=== PATIENT | female | born 1950 | race American Indian/Alaskan Native ===

== ENCOUNTER 2016-12-27 06:51 | Day surgery (SDC) | payer MEDICARE, OTHER ==
[2016-12-27] MEDS ORDERED: Proparacaine 0.5% Ophth Soln 15 ML Bottle EYERT ONE (07:00)
[2016-12-27] MEDS ORDERED: Acetaminophen 325 MG Tab PO PRN (07:00)
[2016-12-27] MEDS ORDERED: Timolol Maleate 0.5% Ophth Soln 5 ML Bottle EYERT ONE (07:00)
[2016-12-27] MEDS ORDERED: Ondansetron 4 MG/2 ML SDV IVPUSH PRN (07:00)
[2016-12-27] MEDS ORDERED: Moxifloxacin 0.5% Ophth Soln 3 ML Bottle EYERT ONE (07:00)
[2016-12-27] MEDS ORDERED: Phenylephrine 10% Ophth Soln 5 ML Bot EYERT PRN (07:00)
[2016-12-27] MEDS ORDERED: Phenylephrine 10% Ophth Soln 5 ML Bot EYERT ONE (07:00)
[2016-12-27] MEDS ORDERED: Cataract Ophth Solution EYERT ONE (07:00)
[2016-12-27] MEDS ORDERED: Sodium Chloride 0.9% 10 ML Syringe FLUSH PRN (07:00)
[2016-12-27] MEDS ORDERED: Povidone-Iodine 5% Sterile Ophth Soln 30 ML Bottle EYERT ONE ×2 (07:00→08:28)
[2016-12-27] MEDS ORDERED: Midazolam 1 MG/ML 2 ML SDV ONE (07:45)
[2016-12-27] MEDS ORDERED: Ondansetron 4 MG/2 ML SDV ONE (07:45)
[2016-12-27] MEDS ORDERED: Dexamethasone 4 MG/ML SDV ONE (07:45)
[2016-12-27] MEDS ORDERED: Famotidine 20 MG/2 ML SDV ONE (07:46)
[2016-12-27] MEDS ORDERED: Lidocaine 1% 30 ML SDV ONE (08:28)
[2016-12-27] MEDS ORDERED: Diclofenac Sodium 0.1% Ophth Soln 5 ML Bottle EYERT ONE (08:29)
[2016-12-27] MEDS ORDERED: Apraclonidine 0.5% Ophth Soln 5 ML Bot EYERT ONE (08:30)
[2016-12-27] MEDS ORDERED: Dexamethasone/Neomycin/Polymyxin B Ophth Oint 3.5 GM Tube EYERT ONE (08:30)
[2016-12-27] MEDS ORDERED: Vancomycin 500 MG SDV EYERT ONE (08:31)
[2016-12-27] MEDS ORDERED: Balanced Salt Solution Ophth Irrig 500 ML Bottle IOCULAR ONE (08:31)
[2016-12-27] MEDS ORDERED: Chondroitin Sulfate/Hyaluronate Sodium Ophth Inj 0.75 ML Syringe EYERT ONE (08:32)
--- NOTE | 2016-12-27 11:12 | OR ---
DATE: 12/27/2016 PREOPERATIVE DIAGNOSIS: Cataract, right eye. POSTOPERATIVE DIAGNOSIS: Cataract, right eye. PROCEDURE: Extracapsular cataract extraction with intraocular lens implant, right eye. ANESTHESIA: Topical/local MAC. COMPLICATIONS: None. INDICATION: Ms. Canales was seen in the clinic. She has complained of difficulty reading, difficulty seeing road signs. Clinical examination reveals mixed cataract with best spectacle corrected vision of 2200. I explained options. I offered cataract surgery, and explained risks preoperatively including but not limited to, infection, retinal detachment, loss of vision, need for additional surgery, and risks associated with anesthesia. We discussed implant options. She requested a monofocal implant. She is comfortable wearing glasses following surgery if necessary. OPERATIVE DESCRIPTION: After informed consent was obtained and the risks, benefits, and alternatives were explained, the patient was brought to the operative suite and topical anesthesia was administered. The patient was then prepped and draped in the sterile fashion and attention was placed on the right eye. A sterile lid speculum was placed into the right eye to allow operative exposure. A full-thickness paracentesis was made in the temporal portion of the operative eye. Preservative-free lidocaine 0.1 mL was injected into the anterior chamber followed by viscoelastic. A full-thickness corneal incision was then made into the anterior chamber. A bent needle cystotome was used to create a small jaden in the anterior capsule. The capsulorrhexis forceps was then used to create a 360-degree curvilinear capsulorrhexis. The nucleus was then removed using a phacoemulsification handpiece and the remaining cortical material was then removed with irrigation and aspiration handpiece. Following removal of the cortical material, the capsular bag was then inspected and noted to be free of any holes or tears. Viscoelastic was then injected into the capsular bag and the intraocular lens was inserted into the capsular bag. No complications occurred. The viscoelastic material was then removed from both the anterior and posterior chambers and from behind the IOL. The lens and capsular bag were then reinspected. The IOL was well centered and the capsular bag intact. The wound and paracentesis sites were inspected and hydrated with balanced saline solution. Both were found to be self-sealing. The intraocular pressure was assessed digitally and found to be within normal range. A good red reflex was noted at the completion of the procedure. No complications occurred during the operation. At the completion of the procedure, Keely Encinas, and Iopidine drops were placed into the operative eye. A sterile eye shield was placed over the operative eye and the patient was transported to the postoperative recovery area having tolerated the procedure well. Postoperative instructions were given along with a postoperative appointment. The patient was advised to call with any questions or concerns. [facility] /[id number]
[2016-12-27 12:09] VITALS: BP 112/49
[2016-12-27] MEDS ORDERED: Ondansetron 4 MG/2 ML SDV IV ONE (16:33)
[2016-12-27] MEDS ORDERED: Famotidine 20 MG/2 ML SDV IV ONE (16:33)
[2016-12-27] MEDS ORDERED: Midazolam 1 MG/ML 2 ML SDV IV ONE (16:33)
--- NOTE | 2017-01-11 15:53 | EKG ---
12/27/2016 - EFRAIN BRITTON - TIME OF EK hours. EKG, per my reading, shows sinus rhythm at the rate of 46. [facility] /[id number]
== END 2016-12-27 09:37 | disposition home or self-care (01) ==
LOC: DL.SDS 06:51
PROVIDERS: ATTEND Ophthalmology
DX: H26.9 Unspecified cataract (principal); I10 Essential (primary) hypertension; E11.9 Type 2 diabetes mellitus without complications; E78.5 Hyperlipidemia, unspecified; I25.810 Atherosclerosis of coronary artery bypass graft(s) without angina pectoris; F32.9 Major depressive disorder, single episode, unspecified; E53.8 Deficiency of other specified B group vitamins; Z88.8 Allergy status to other drugs, medicaments and biological substances; Z90.710 Acquired absence of both cervix and uterus; Z98.890 Other specified postprocedural states; Z90.49 Acquired absence of other specified parts of digestive tract
CPT/HCPCS: 00142; 66984; 82962; 93005; 93010; A9270; C1780; J2250; J2405; J3370; J7050; S0028

== ENCOUNTER 2017-01-03 07:53 | Day surgery (SDC) | payer MEDICARE, OTHER ==
[~2017-01-03 07:53] MED LIST: Dexamethasone 4 MG/ML SDV ONE; Midazolam 1 MG/ML 2 ML SDV ONE
[2017-01-03] MEDS ORDERED: Phenylephrine 10% Ophth Soln 5 ML Bot EYELF PRN (08:00)
[2017-01-03] MEDS ORDERED: Ondansetron 4 MG/2 ML SDV IVPUSH PRN (08:00)
[2017-01-03] MEDS ORDERED: Moxifloxacin 0.5% Ophth Soln 3 ML Bottle EYELF ONE (08:00)
[2017-01-03] MEDS ORDERED: Acetaminophen 325 MG Tab PO PRN (08:00)
[2017-01-03] MEDS ORDERED: Povidone-Iodine 5% Sterile Ophth Soln 30 ML Bottle EYELF ONE ×2 (08:00→09:13)
[2017-01-03] MEDS ORDERED: Sodium Chloride 0.9% 10 ML Syringe FLUSH PRN (08:00)
[2017-01-03] MEDS ORDERED: Timolol Maleate 0.5% Ophth Soln 5 ML Bottle EYELF ONE (08:00)
[2017-01-03] MEDS ORDERED: Phenylephrine 10% Ophth Soln 5 ML Bot EYELF ONE (08:00)
[2017-01-03] MEDS ORDERED: Cataract Ophth Solution EYELF ONE (08:00)
[2017-01-03] MEDS ORDERED: Proparacaine 0.5% Ophth Soln 15 ML Bottle EYELF ONE (08:00)
[2017-01-03] MEDS ORDERED: Ondansetron 4 MG/2 ML SDV ONE (08:54)
[2017-01-03] MEDS ORDERED: Tetracaine HCl/PF 0.5% 4 ML Bottle EYELF ONE (09:13)
[2017-01-03] MEDS ORDERED: Dexamethasone/Neomycin/Polymyxin B Ophth Oint 3.5 GM Tube EYELF ONE (09:13)
[2017-01-03] MEDS ORDERED: Balanced Salt Solution Ophth Irrig 500 ML Bottle IOCULAR ONE (09:13)
[2017-01-03] MEDS ORDERED: Apraclonidine 0.5% Ophth Soln 5 ML Bot EYELF ONE (09:13)
[2017-01-03] MEDS ORDERED: Lidocaine 1% 30 ML SDV ONE (09:14)
[2017-01-03] MEDS ORDERED: Vancomycin 500 MG SDV EYELF ONE (09:14)
[2017-01-03] MEDS ORDERED: Chondroitin Sulfate/Hyaluronate Sodium Ophth Inj 0.75 ML Syringe EYELF ONE (09:14)
--- NOTE | 2017-01-03 10:40 | OR ---
DATE: 01/03/2017 PREOPERATIVE DIAGNOSIS: Cataract, left eye. POSTOPERATIVE DIAGNOSIS: Cataract, left eye. PROCEDURE: Extracapsular cataract extraction with intraocular lens implant, left eye. ANESTHESIA: Topical/local MAC. COMPLICATIONS: None. INDICATION: Ms. Canales was seen in the clinic with complaints of blurred vision. Clinical examination revealed visually significant cataract. I explained options. I offered cataract surgery, and explained risks, including, but not limited to, infection, retinal detachment, loss of vision, need for additional surgery, and risks associated with anesthesia. We discussed implant options. She has requested cataract surgery with a monofocal implant. She is comfortable wearing glasses following surgery if necessary. She voiced an understanding with respect to risks and limitations and wished to proceed. OPERATIVE DESCRIPTION: After informed consent was obtained and the risks, benefits, and alternatives were explained, the patient was brought to the operative suite and topical anesthesia was administered. The patient was then prepped and draped in the sterile fashion and attention was placed on the left eye. A sterile lid speculum was placed into the left eye to allow operative exposure. A full-thickness paracentesis was made in the temporal portion of the operative eye. Preservative-free lidocaine 0.1 mL was injected into the anterior chamber followed by viscoelastic. A full-thickness corneal incision was then made into the anterior chamber. A bent needle cystotome was used to create a small jaden in the anterior capsule. The capsulorrhexis forceps was then used to create a 360-degree curvilinear capsulorrhexis. The nucleus was then removed using a phacoemulsification handpiece and the remaining cortical material was then removed with irrigation and aspiration handpiece. Following removal of the cortical material, the capsular bag was then inspected and noted to be free of any holes or tears. Viscoelastic was then injected into the capsular bag and the intraocular lens was inserted into the capsular bag. No complications occurred. The viscoelastic material was then removed from both the anterior and posterior chambers and from behind the IOL. The lens and capsular bag were then reinspected. The IOL was well centered and the capsular bag intact. The wound and paracentesis sites were inspected and hydrated with balanced saline solution. Both were found to be self-sealing. The intraocular pressure was assessed digitally and found to be within normal range. A good red reflex was noted at the completion of the procedure. No complications occurred during the operation. At the completion of the procedure, Pinkdingol, Voltaren, and Iopidine drops were placed into the operative eye. A sterile eye shield was placed over the operative eye and the patient was transported to the postoperative recovery area having tolerated the procedure well. Postoperative instructions were given along with a postoperative appointment. The patient was advised to call with any questions or concerns. [facility] /[id number]
[2017-01-03 11:39] VITALS: BP 119/67
[2017-01-03] MEDS ORDERED: Midazolam 1 MG/ML 2 ML SDV IV ONE (16:41)
[2017-01-03] MEDS ORDERED: Dexamethasone 4 MG/ML SDV IV ONE (16:41)
[2017-01-03] MEDS ORDERED: Ondansetron 4 MG/2 ML SDV IV ONE (16:41)
== END 2017-01-03 10:21 | disposition home or self-care (01) ==
LOC: DL.SDS 07:53
PROVIDERS: ATTEND Ophthalmology
DX: H26.9 Unspecified cataract (principal); I25.810 Atherosclerosis of coronary artery bypass graft(s) without angina pectoris; I10 Essential (primary) hypertension; E78.5 Hyperlipidemia, unspecified; Z88.8 Allergy status to other drugs, medicaments and biological substances; E11.9 Type 2 diabetes mellitus without complications; F32.9 Major depressive disorder, single episode, unspecified; E53.8 Deficiency of other specified B group vitamins; Z90.49 Acquired absence of other specified parts of digestive tract; Z90.710 Acquired absence of both cervix and uterus; Z98.890 Other specified postprocedural states; Z98.84 Bariatric surgery status
CPT/HCPCS: 66984; A9270; C1780; J1100; J2250; J2405; J3370; J7050; 00142

== ENCOUNTER 2017-07-11 06:50 | Day surgery (SDC) | payer MEDICARE, OTHER ==
[~2017-07-11 06:50] MED LIST changes: -Dexamethasone 4 MG/ML SDV ONE; +Dextrose 5%-0.45% NaCl 1,000 ML IV SCH; +Sodium Chloride 0.9% 10 ML Syringe FLUSH PRN; +fentaNYL 100 MCG/2 ML SDV ONE
[2017-07-11] MEDS ORDERED: fentaNYL 100 MCG/2 ML SDV IV ONE ×3 (06:51→07:56)
[2017-07-11] MEDS ORDERED: Midazolam 1 MG/ML 2 ML SDV IV ONE ×3 (06:51→07:57)
--- NOTE | 2017-07-11 09:07 | OR ---
DATE: 07/11/2017 PROCEDURE: Esophagogastroduodenoscopy, narrow-band imaging, and multiple pinch biopsies. INSTRUMENT USED: GIF-H180 Olympus video panendoscope. PREMEDICATIONS: No oral topical anesthesia used. Fentanyl 100 mcg intravenous, Versed 2 mg intravenous. Nasal O2 cannula. The procedure was done under pulse oximetry, BP recording, and monitor and storage bin tender. INDICATION: The patient with intermittent constipation, diarrhea, and abdominal pain unexplained, and not responsive to medical measures. Status post gastric bypass surgery. Recent CT enterography suggestive of prominent duodenal fold, malignancy under consideration. DESCRIPTION OF PROCEDURE: Esophagogastroduodenoscopy is performed for detection of any active erosive lesions, duodenal malignancy also under consideration, biopsies to be obtained for celiac disease if indicated, endoscopic hemostasis therapy if needed. The colonoscope was passed with ease. Adequate visualization of the esophagus was made from proximal to distal areas. No upper esophageal lesions identified. No distal esophageal stricture. No uphill or downhill esophageal varices. No Dolores-Vega tear. No evidence of erosive esophagitis by Claiborne criteria. No esophageal polyp or tumor mass identified. Z-line was seen at around 40 cm distal to the oral verge, configuration consistent with Grade 1 by Zapp classification. No proximal gastric varices noted. Gastric fundus examination by retroflexion showed no polypoid lesions. Visualized mucosa of the gastric antrum, body, and duodenum showed no lesions. Efferent loop of the duodenum visualized, showed a couple of areas with prominent folds. NBI views were obtained, multiple pinch biopsies were obtained and sent for histopathology. Multiple pinch biopsies, four in number, were also taken from the normal- appearing duodenal mucosa and sent for any histopathologic evidence of celiac disease. No bleeding was noted from any of the visualized areas at the completion of examination. Photographs were taken of the prominent duodenal folds, surgical site, gastric fundus, as well as distal esophagus. IMPRESSION: Status post gastric bypass surgery. The patient tolerated the procedure well. [facility] /[id number]
--- NOTE | 2017-07-11 09:20 | LETTER ---
07/11/2017 Nicolle Rodriguez MD [facility] [address] [place] [address] RE: AMANDA BRITTON : [address] Rodriguez: Ms. Amanda Gentile Parker had esophagogastroduodenoscopy done this morning and she tolerated the procedure well. I herewith send a copy of the endoscopy note and photographs for your review. Thank you. Sincerely, [facility] /[id number]
[2017-07-11 11:01] VITALS: BP 122/68
== END 2017-07-11 10:22 | disposition home or self-care (01) ==
LOC: DL.ENDO 06:50
PROVIDERS: ATTEND Internal Medicine Gastroenterology
DX: K59.00 Constipation, unspecified (principal); R10.9 Unspecified abdominal pain; R19.7 Diarrhea, unspecified; E66.9 Obesity, unspecified; I25.10 Atherosclerotic heart disease of native coronary artery without angina pectoris; I10 Essential (primary) hypertension; E11.9 Type 2 diabetes mellitus without complications; E78.5 Hyperlipidemia, unspecified; E53.8 Deficiency of other specified B group vitamins; F32.9 Major depressive disorder, single episode, unspecified; Z90.49 Acquired absence of other specified parts of digestive tract; Z98.84 Bariatric surgery status; Z90.710 Acquired absence of both cervix and uterus; Z98.890 Other specified postprocedural states; Z88.8 Allergy status to other drugs, medicaments and biological substances; Z95.1 Presence of aortocoronary bypass graft; Z68.30 Body mass index [BMI] 30.0-30.9, adult
CPT/HCPCS: 43239; J2250; J3010; J7042; 88305

== ENCOUNTER 2018-10-02 13:31 | Emergency (ER) | payer MEDICARE, OTHER ==
--- NOTE | 2018-10-02 13:44 | EDM.PDOC ---
ED HPI GENERAL MEDICAL PROBLEM - General Chief Complaint: Cardiovascular Problem Stated Complaint: [facility] Time Seen by Provider: 10/02/18 13:35 Source of Information: Reports: Patient History Limitations: Reports: No Limitations - History of Present Illness INITIAL COMMENTS - FREE TEXT/NARRATIVE: This 68 yo female patient was brought to the ED by SLACandelario from the [facility] due to feeling like her heart has been racing since yesterday. The patient reports she did take an Aspirin (325 mg) this morning, but did not take her Metroprolol today. The patient reports her symptoms started last evening and have continued. The patient reports she is a little short of breath at this time. The patient reports she does have a cardiac history including 2 stents with her last visit to cardiology being about 2 months ago. The patient reports she currently does not have any chest pains. The patient reports she was advised by her smelter charger to go to the clinic if she ever has any additional symptoms. 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 ((325 mg this moring at 1145)) - Related Data Allergies Allergy/AdvReac Type Severity Reaction Status Date / Time isosorbide Allergy Rash Verified 10/02/18 13:49 oxycodone Allergy Other Verified 10/02/18 13:49 Home Meds: Home Meds Aspirin/Calcium Carbonate/Mag [Aspirin Buffered 325 mg Tab] 325 mg PO DAILY 10/24 [History] Dimenhydrinate [Dramamine] 50 mg PO DAILY PRN 07/12/14 [History] Metoprolol Tartrate [Lopressor] 150 mg PO DAILY 07/12/14 [History] Nitroglycerin [Nitrostat] 0.4 mg SL ASDIRECTED 07/12/14 [History] Sertraline [Zoloft] 50 mg PO DAILY 07/12/14 [History] Telmisartan [Micardis] 20 mg PO DAILY 07/12/14 [History] atorvaSTATin [Lipitor] 40 mg PO DAILY 07/12/14 [History] Omeprazole 20 mg PO DAILY 01/01/17 [History] glyBURIDE [Glyburide] 10 mg PO BID 01/01/17 [History] Aspirin 325 mg PO Q12HR PRN 10/02/18 [History] Past Medical History HEENT History: Reports: Cataract, Other (See Below) Other HEENT History: WEARS CORRECTIVE LENSES Cardiovascular History: Reports: Arrhythmia, CAD, High Cholesterol, Hypertension , Syncope, Other (See Below) Other Cardiovascular History: MILD AORTIC STENOSIS; MITRAL REGURGITATION; PARAXOSYMAL ATRIAL TACHYCARDIA. 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 Psychiatric History: Reports: Depression Endocrine/Metabolic History: Reports: Diabetes, Type II, Obesity/BMI 30+ Hematologic History: Reports: B12 Deficiency Immunologic History: Reports: None Oncologic (Cancer) History: Reports: None Dermatologic History: Reports: None - Infectious Disease History Infectious Disease History: Reports: Chicken Pox, Shingles - Past Surgical History Head Surgeries/Procedures: Reports: None HEENT Surgical History: Reports: Cataract Surgery Cardiovascular Surgical History: Reports: Coronary Artery Bypass, Coronary Artery Stent GI Surgical History: Reports: Appendectomy, Bariatric Procedure, Cholecystectomy , EGD Female Surgical History: Reports: Section, Hysterectomy Musculoskeletal Surgical History: Reports: Carpal Tunnel Social & Family History - Family History HEENT: Reports: Cataract, Glaucoma, Impaired Vision Cardiac: Reports: CAD, Hypertension Musculoskeletal: Reports: Arthritis Neurological: Reports: CVA Endocrine/Metabolic: Reports: Diabetes, type II - Caffeine Use Caffeine Use: Reports: Coffee ED ROS GENERAL - Review of Systems Review Of Systems: ROS reveals no pertinent complaints other than HPI. ED EXAM, GENERAL - Physical Exam Exam: See Below Exam Limited By: No Limitations General Appearance: Alert, WD/WN, Mild Distress Eye Exam: Bilateral Eye: EOMI, Normal Inspection, PERRL Ears: Normal External Exam, Normal Canal, Hearing Grossly Normal, Normal TMs Nose: Normal Inspection, Normal Mucosa, No Blood Throat/Mouth: Normal Inspection, Normal Lips, Normal Teeth, Normal Gums, Normal Oropharynx, Normal Voice, No Airway Compromise Head: Atraumatic, Normocephalic Neck: Normal Inspection, Supple, Non-Tender, Full Range of Motion Respiratory/Chest: No Respiratory Distress, Lungs Clear, Normal Breath Sounds, No Accessory Muscle Use, Chest Non-Tender Cardiovascular: No Edema, No Gallop, No JVD, No Murmur, No Rub, Tachycardia GI/Abdominal: Normal Bowel Sounds, Soft, Non-Tender, No Organomegaly, No Distention, No Abnormal Bruit, No Mass (Female) Exam: Deferred Rectal (Female) Exam: Deferred Back Exam: Normal Inspection, Full Range of Motion, NT Extremities: Normal Inspection, Normal Range of Motion, Non-Tender, Normal Capillary Refill, No Pedal Edema Neurological: Alert, Oriented, CN II-XII Intact, Normal Cognition, Normal Gait, Normal Reflexes, No Motor/Sensory Deficits Psychiatric: Normal Affect, Normal Mood Skin Exam: Warm, Dry, Intact, Normal Color, No Rash Lymphatic: No Adenopathy Course - Vital Signs Last Recorded V/S: Last Vital Signs Temp 35.3 C 10/02/18 13:35 Pulse 91 10/02/18 14:51 Resp 22 H 10/02/18 14:51 BP 103/75 10/02/18 14:51 Pulse Ox 99 10/02/18 14:51 - Orders/Labs/Meds Orders: Active Orders 24 hr Category Date Time Status EKG Documentation Completion [RC] URGENT Care 10/02/18 13:31 Active CULTURE BLOOD [BC] Stat Lab 10/02/18 13:31 Ordered UA RFX CHRISTIE AND CULT IF INDIC [URIN] Urgent Lab 10/02/18 13:32 Ordered Labs: Laboratory Tests 10/02/18 10/02/18 10/02/18 Range/Units 13:47 13:47 13:47 WBC 8.6 (5.0-10.0) 10^3/uL RBC 4.76 (4.2-5.4) 10^6/uL Hgb 14.3 (12.0-16.0) g/dL Hct 45.1 (37.0-47.0) % MCV 94.7 D (80-100) fL MCH 30.0 (27.0-34.0) pg MCHC 31.7 L (33.0-35.0) g/dL Plt Count 315 (150-450) 10^3/uL Neut % (Auto) 70.5 (42.2-75.2) % Lymph % (Auto) 19.3 L (20.5-50.1) % [place] % (Auto) 9.1 H (2-8) % Eos % (Auto) 0.9 L (1.0-3.0) % Baso % (Auto) 0.2 (0.0-1.0) % Sodium 135 (135-145) mmol/L Potassium 4.2 (3.6-5.0) mmol/L Chloride 96 L (101-111) mmol/L Carbon Dioxide 26.0 (21.0-31.0) mmol/L Anion Gap 17.2 BUN 14 (7-18) mg/dL Creatinine 1.1 (0.6-1.3) mg/dL Est Cr Clr Drug Dosing 38.71 mL/min Estimated GFR (MDRD) 49 BUN/Creatinine Ratio 12.72 Glucose 130 H (74-105) mg/dL Lactic Acid 2.2 (0.5-2.2) mmol/L Calcium 9.6 (8.4-10.2) mg/dl Total Bilirubin 0.4 (0.2-1.0) mg/dL AST 23 (10-42) IU/L ALT 18 (10-60) IU/L Alkaline Phosphatase 99 (42-121) IU/L Troponin I < 0.02 (0.00-0.02) ng/ml Total Protein 7.9 (6.7-8.2) g/dl Albumin 3.8 (3.2-5.5) g/dl Globulin 4.1 Albumin/Globulin Ratio 0.93 Meds: Medications Discontinued Medications Generic Name Dose Route Start Last Admin Trade Name Freq PRN Reason Stop Dose Admin Metoprolol Tartrate 2.5 mg 10/02/18 13:55 10/02/18 14:02 Lopressor IVPUSH 10/02/18 13:56 2.5 mg ONETIME ONE Administration Departure - Departure Time of Disposition: 14:52 Disposition: Home, Self-Care 01 Condition: Fair Clinical Impression: Tachycardia Instructions: Sinus Tachycardia Forms: ED Department Discharge Care Plan Goals: The patient was advised of the examination, lab, EKG and x-ray results during the visit. The patient was given an IV dose of Metroprolol while in the ED. The patient reports feeling better prior to discharge. If the patient has any additional symptoms or concerns, the patient should either visit her primary care facility or return to the emergency department. - My Orders Last 24 Hours: My Active Orders 10/02/18 13:31 EKG Documentation Completion [RC] URGENT CULTURE BLOOD [BC] Stat 10/02/18 13:32 UA RFX CHRISTIE AND CULT IF INDIC [URIN] Urgent - Assessment/Plan Last 24 Hours: My Active Orders 10/02/18 13:31 EKG Documentation Completion [RC] URGENT CULTURE BLOOD [BC] Stat 10/02/18 13:32 UA RFX CHRISTIE AND CULT IF INDIC [URIN] Urgent
[2018-10-02] MEDS ORDERED: Metoprolol Tartrate 5 MG/5 ML SDV IVPUSH ONE (13:55)
[2018-10-02 14:20] LABS: ANION GAP 17.2; CHLORIDE,CL 96 mmol/L (101-111); SODIUM,NA 135 mmol/L (135-145)
[2018-10-02 14:52] VITALS: BP 103/75
== END 2018-10-02 15:07 | disposition home or self-care (01) ==
LOC: DL.ED 13:31
DX: R00.0 Tachycardia, unspecified (principal); I10 Essential (primary) hypertension; E11.9 Type 2 diabetes mellitus without complications; E66.9 Obesity, unspecified; Z88.8 Allergy status to other drugs, medicaments and biological substances; Z88.5 Allergy status to narcotic agent; Z79.899 Other long term (current) drug therapy
CPT/HCPCS: 36415; 71045; 80053; 83605; 84484; 85025; 87040; 93005; 96374; 99285; J3490

== ENCOUNTER 2019-10-30 11:55 | Observation (INO) | payer MEDICARE, OTHER ==
[2019-10-30] MEDS ORDERED: Ondansetron 4 MG/2 ML SDV ONE (11:58)
[2019-10-30] MEDS ORDERED: Ondansetron 4 MG/2 ML SDV IVPUSH ONE (12:09)
--- NOTE | 2019-10-30 12:20 | EDM.PDOC ---
ED HPI GENERAL MEDICAL PROBLEM <Ranjan Eason - Last Filed: 10/30/19 13:28> - General Source of Information: Reports: Patient, EMS History Limitations: Reports: No Limitations - History of Present Illness Onset: Today Duration: Constant Location: Reports: Head, Neck, Lower Extremity, Left Quality: Reports: Other Severity: Moderate Improves with: Reports: None Worsens with: Reports: None Context: Reports: Other Associated Symptoms: Reports: No Other Symptoms <Caden Jose - Last Filed: 10/30/19 16:10> - General Stated Complaint: AMBULANCE Time Seen by Provider: 10/30/19 11:55 - History of Present Illness INITIAL COMMENTS - FREE TEXT/NARRATIVE: HPI: This 69 yo female patient was brought to the ED by [facility] (with intercept from [facility]) due to a fall down a flight of stairs. EMS reports the patient fell down about 15 stairs prior to calling for the ambulance. The patient initially could not remember the incident, but by the patient could recall the incident upon arrival in the ED. EMS reports there was blood on the back of her head with a reported blood loss on scene of approximately 100 mL. Primary Survey Airway: open and patient Breathing: regular without additional effort Circulation: no profuse bleeding at this time. The patient does have blood apparent on her posterior scalp and back of shirt. Deformity: no deformity noted Expose: as appropriate GCS: 15 Secondary Survey HEENT Head: normocephalic, bleeding from posterior scalp Eyes: PERRLA Ears: no obvious trauma, canals open Nose: no deformity, no bleeding, mucosa moist Mouth: no noted trauma Throat: no abnormalities noted Neck: Subtle, normal range of motion no cervical tenderness Chest: lung sounds were clear and equal bilaterally Heart: RRR, no murmurs, rubs or gallop Abdomen: normoactive bowel sounds, no organomegally, no tenderness on palpation Pelvis: stable Extremities: CMS intact Provider Trauma Notes Arrival Time: 1155 GCS on Arrival: 15 C-collar present on arrival: Yes GCS at 1 hour: Off spine board: Time primary survey: 1156 Time secondary survey: 1202 Time C-collar cleared: By: Time removed: GCS on discharge: (Caden Jose) - Related Data Allergies Allergy/AdvReac Type Severity Reaction Status Date / Time isosorbide Allergy Rash Verified 10/30/19 12:30 oxycodone Allergy Other Verified 10/30/19 12:30 Home Meds: Home Meds Aspirin/Calcium Carbonate/Mag [Aspirin Buffered 325 mg Tab] 325 mg PO DAILY 10/24 [History] Dimenhydrinate [Dramamine] 50 mg PO DAILY PRN 07/12/14 [History] Metoprolol Tartrate [Lopressor] 150 mg PO DAILY 07/12/14 [History] Nitroglycerin [Nitrostat] 0.4 mg SL ASDIRECTED 07/12/14 [History] Sertraline [Zoloft] 50 mg PO DAILY 07/12/14 [History] Telmisartan [Micardis] 20 mg PO DAILY 07/12/14 [History] atorvaSTATin [Lipitor] 40 mg PO DAILY 07/12/14 [History] Aspirin 325 mg PO Q12HR PRN 10/02/18 [History] Amitriptyline [Elavil] 10 mg PO BEDTIME 10/30/19 [History] Past Medical History HEENT History: Reports: Cataract, Other (See Below) Other HEENT History: WEARS CORRECTIVE LENSES Cardiovascular History: Reports: Arrhythmia, CAD, High Cholesterol, Hypertension , Syncope, Other (See Below) Other Cardiovascular History: MILD AORTIC STENOSIS; MITRAL REGURGITATION; PARAXOSYMAL ATRIAL TACHYCARDIA. 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 Psychiatric History: Reports: Depression Endocrine/Metabolic History: Reports: Diabetes, Type II, Obesity/BMI 30+ Hematologic History: Reports: B12 Deficiency Immunologic History: Reports: None Oncologic (Cancer) History: Reports: None Dermatologic History: Reports: None - Infectious Disease History Infectious Disease History: Reports: Chicken Pox, Shingles - Past Surgical History Head Surgeries/Procedures: Reports: None HEENT Surgical History: Reports: Cataract Surgery Cardiovascular Surgical History: Reports: Coronary Artery Bypass, Coronary Artery Stent GI Surgical History: Reports: Appendectomy, Bariatric Procedure, Cholecystectomy , EGD Female Surgical History: Reports: Section, Hysterectomy Musculoskeletal Surgical History: Reports: Carpal Tunnel <Jose,Caden - Last Filed: 10/30/19 16:10> Social & Family History - Family History HEENT: Reports: Cataract, Glaucoma, Impaired Vision Cardiac: Reports: CAD, Hypertension Musculoskeletal: Reports: Arthritis Neurological: Reports: CVA Endocrine/Metabolic: Reports: Diabetes, type II - Caffeine Use Caffeine Use: Reports: Coffee <Caden Jose - Last Filed: 10/30/19 16:10> Review of Systems - Review of Systems Review Of Systems: Comprehensive ROS is negative, except as noted in HPI. <Caden Jose Last Filed: 10/30/19 16:10> ED EXAM, GENERAL - Physical Exam Exam: See Below Exam Limited By: No Limitations General Appearance: Alert, WD/WN, Moderate Distress Eye Exam: Bilateral Eye: EOMI, Normal Inspection, PERRL Ears: Normal External Exam, Normal Canal, Hearing Grossly Normal, Normal TMs Nose: Normal Inspection, Normal Mucosa, No Blood Throat/Mouth: Normal Inspection, Normal Lips, Normal Teeth, Normal Gums, Normal Oropharynx, Normal Voice, No Airway Compromise Head: Other (Posterior scalp tenderness with a laceration (4 cm)) Neck: Normal Inspection, Supple, Non-Tender, Full Range of Motion, Other ( Initially the patient was in a C-collar. After CT cleared c-spine, the patient reports some stiffness, but no tenderness to palpation. The patient had full range of motion at that time. ) Respiratory/Chest: No Respiratory Distress, Lungs Clear, Normal Breath Sounds, No Accessory Muscle Use, Chest Non-Tender Cardiovascular: Normal Peripheral Pulses, No Edema, No Gallop, No JVD, No Murmur , No Rub, Bradycardia Peripheral Pulses: 4+: Dorsalis Pedis (L), Dorsalis Pedis (R) GI/Abdominal: Normal Bowel Sounds, Soft, Non-Tender, No Organomegaly, No Distention, No Abnormal Bruit, No Mass, Other (obese) (Female) Exam: Deferred Rectal (Female) Exam: Deferred Back Exam: Normal Inspection, Full Range of Motion, NT Extremities: Leg Pain (left lateral thigh tenderness) Neurological: Alert, Oriented, CN II-XII Intact, Normal Cognition Psychiatric: Normal Affect, Normal Mood Skin Exam: Warm, Dry, Normal Color, No Rash Lymphatic: No Adenopathy <Jose,Caden M - Last Filed: 10/30/19 16:10> ED TRAUMA PROCEDURES - Laceration/Wound Repair Posterior Occipital Head Lac/Wound Length In cm: 4 Appearance: Subcutaneous Distal NVT: Neuro & Vascular Intact, No Tendon Injury Anesthetic Type: Local Local Anesthesia - Lidocaine (Xylocaine): 1% with EPI Local Anesthetic Volume: 3cc Skin Prep: Chlorhexidine (Hibiciens), Sterile Drape Exploration/Debridement/Repair: Wound Explored, No Foreign Material Found, Wound Margins Revised Closed With: Sutures Suture Size: 3-0 Suture Type: Prolene, Interrupted, Simple Sterile Dressing Applied: Nurse Tetanus Status Addressed: Yes Complications: No <Ranjan Eason - Last Filed: 10/30/19 13:28> Course <Ranjan Eason - Last Filed: 10/30/19 13:28> <Caden Jose Zoran - Last Filed: 10/30/19 16:10> - Orders/Labs/Meds Orders: Active Orders 24 hr Category Date Time Status UA RFX CHRISTIE AND CULT IF INDIC [URIN] Urgent Lab 10/30/19 12:01 Ordered Labs: Laboratory Tests 10/30/19 10/30/19 Range/Units 12:05 12:05 WBC 7.8 (5.0-10.0) 10^3/uL RBC 4.22 (4.2-5.4) 10^6/uL Hgb 12.9 (12.0-16.0) g/dL Hct 40.3 (37.0-47.0) % MCV 95.5 (80-100) fL MCH 30.6 (27.0-34.0) pg MCHC 32.0 L (33.0-35.0) g/dL Plt Count 307 (150-450) 10^3/uL Neut % (Auto) 63.5 (42.2-75.2) % Lymph % (Auto) 25.8 (20.5-50.1) % Louisa % (Auto) 8.5 H (2-8) % Eos % (Auto) 1.9 (1.0-3.0) % Baso % (Auto) 0.3 (0.0-1.0) % Sodium 137 (135-145) mmol/L Potassium 4.3 (3.6-5.0) mmol/L Chloride 104 (101-111) mmol/L Carbon Dioxide 23.0 (21.0-31.0) mmol/L Anion Gap 14.3 BUN 11 (7-18) mg/dL Creatinine 1.0 (0.6-1.3) mg/dL Est Cr Clr Drug Dosing TNP Estimated GFR (MDRD) 55 BUN/Creatinine Ratio 11.00 Glucose 122 H (74-105) mg/dL Calcium 9.3 (8.4-10.2) mg/dl Total Bilirubin 0.5 (0.2-1.0) mg/dL AST 17 (10-42) IU/L ALT 13 (10-60) IU/L Alkaline Phosphatase 76 (42-121) IU/L Total Protein 7.0 (6.7-8.2) g/dl Albumin 3.7 (3.2-5.5) g/dl Globulin 3.3 Albumin/Globulin Ratio 1.12 Meds: Medications Discontinued Medications Generic Name Dose Route Start Last Admin Trade Name Freq PRN Reason Stop Dose Admin Lidocaine/Epinephrine 20 ml 10/30/19 13:00 10/30/19 13:26 Xylocaine-Mpf 2%-Epi 1:200,000 INJECT 10/30/19 13:01 20 ml ONETIME ONE Administration Meclizine HCl 12.5 mg 10/30/19 13:57 10/30/19 14:04 Antivert PO 10/30/19 13:58 12.5 mg ONETIME ONE Administration Ondansetron HCl Confirm 10/30/19 11:58 10/30/19 12:24 Zofran Administered 10/30/19 11:59 Not Given Dose 4 mg .ROUTE .STK-MED ONE Ondansetron HCl 4 mg 10/30/19 12:09 10/30/19 12:02 Zofran IVPUSH 10/30/19 12:10 4 mg ONETIME ONE Administration - Re-Assessments/Exams Free Text/Narrative Re-Assessment/Exam: 10/30/19 13:02 The patient was advised of the CT results (Head and C-spine) demonstrating no fractures or acute intracranial processes. (Caden Jose) Departure <Ranjan Eason - Last Filed: 10/30/19 13:28> - Departure Time of Disposition: 15:39 Condition: Fair - Discharge Information *PRESCRIPTION DRUG MONITORING PROGRAM REVIEWED*: Not Applicable *COPY OF PRESCRIPTION DRUG MONITORING REPORT IN PATIENT ABDIFATAH: Not Applicable <Caden Jose - Last Filed: 10/30/19 16:10> - Departure Disposition: Home, Self-Care 01 Clinical Impression: Fall down stairs Qualifiers: Encounter type: initial encounter Qualified Code(s): W10.8XXA - Fall (on) (from ) other stairs and steps, initial encounter Head contusion Qualifiers: Encounter type: initial encounter Contusion of head detail: scalp Qualified Code(s): S00.03XA - Contusion of scalp, initial encounter Laceration of head Qualifiers: Encounter type: initial encounter Location of open wound of head: scalp Foreign body presence: without foreign body Qualified Code(s): S01.01XA - Laceration without foreign body of scalp, initial encounter - Discharge Information Instructions: Stitches, Laureen, or Adhesive Wound Closure, [id number], Laceration Care, Adult, [id number], Head Injury, Adult, [id number] Forms: ED Department Discharge Care Plan Goals: The patient was advised of the examination, lab and CT results during the visit. The patient's laceration margins were well approximated during the visit. The patient should have the sutures removed in 10-14 days. The patient was encouraged to rest and relax over the next 24 hours. If the patient has any additional symptoms or concerns, the patient should either return to the emergency department or visit her primary care facility. Sepsis Event Note - Focused Exam Date Exam was Performed: 10/30/19 Time Exam was Performed: 15:38 <Caden Jose - Last Filed: 10/30/19 16:10> - My Orders Last 24 Hours: My Active Orders 10/30/19 12:01 UA RFX CHRISTIE AND CULT IF INDIC [URIN] Urgent - Assessment/Plan Last 24 Hours: My Active Orders 10/30/19 12:01 UA RFX CHRISTIE AND CULT IF INDIC [URIN] Urgent
--- NOTE | 2019-10-30 12:30 | CT ---
EXAMINATION: Cervical Spine wo Cont SEX: Female AGE: 69 years CLINICAL HISTORY: 69-year-old female injured in fall (down flight of stairs). Trauma code. Scan technique: Volume acquisition of data emergency unenhanced CT scan of the cervical spine obtained with patient lying supine on the Siemens multislice scanner [place], [place]. All data archived in the PACS system for storage, reformatting and study. Interpretation: 1. Homogeneous normal bone mineral density for age and gender. 2. Normal height and alignment of the 7 cervical and first 3 thoracic vertebral bodies. 3. No congenital abnormality of pathologic skeletal lesion (edentulous patient). 4. No prevertebral soft tissue swelling, cervical fracture, spondylolisthesis or jumped locked facet. 5. Signs of chronic lower cervical disc disease i.e. interspace narrowing with hypertrophic marginal and uncinate spur formation C4-5 and particularly C5-C6 levels. 6. No cervical rib anomalies. Lung apices clear. CONCLUSION: Disc disease and hypertrophic spur formation. No cervical fracture or dislocation.
[2019-10-30 12:33] LABS: ANION GAP 14.3; CHLORIDE,CL 104 mmol/L (101-111); SODIUM,NA 137 mmol/L (135-145)
--- NOTE | 2019-10-30 12:47 | CT ---
EXAMINATION: Head wo Cont SEX: Female AGE: 69 years CLINICAL HISTORY: 69-year-old female injured in fall (down flight of stairs). Scan technique: Volume acquisition of data emergency unenhanced CT scan of the head (skull and brain) while patient was lying supine on the Siemens multislice scanner [place], [place]. All data archived in the PACS system for storage, reformatting axial/sagittal/coronal planes and study (bone/brain windows). Mild rotation artifact. Interpretation: 1. Symmetric clear pneumatization of the paranasal and mastoid sinuses. 2. Uniformly thick bony calvarium without sign of skull fracture, underlying brain contusion or epidural/subdural hematoma. 3. Asymmetric large scalp hematoma posteriorly, over the convexity, on the right. Hyperostosis frontalis interna. 4. No pathologic skeletal lesion. Normal TMJs. Edentulous patient. 5. Symmetric esquivel-white matter pattern with underlying mirror-image normal ventricular system distorted by patient rotation. 6. Asymmetric, ischemic infarct thalamus, on the right. Other scattered subtle microvascular ischemic changes bilaterally. 7. No supratentorial or posterior fossa mass lesion. No hydrocephalus. 8. No sign of acute intracerebral/intraventricular/subarachnoid bleed. CONCLUSION: Scalp hematoma. Scattered microvascular ischemic changes. No sign of skull fracture, brain contusion, subdural hematoma or acute intracranial bleed.
[2019-10-30] MEDS ORDERED: Lidocaine 2% with EPINEPHrine 1:200,000 20 ML SDV INJECT ONE (13:00)
[2019-10-30] MEDS ORDERED: Meclizine 12.5 MG Tab PO ONE (13:57)
[2019-10-30] MEDS ORDERED: Metoclopramide 10 MG Tab PO ONE (16:23)
[2019-10-30] MEDS: Sodium Chloride 0.9% 1,000 ML IV SCH (17:55)
[2019-10-30] MEDS ORDERED: Magnesium Hydroxide 400 MG/5 ML Susp 30 ML Cup PO PRN (18:11)
[2019-10-30] MEDS ORDERED: Docusate Sodium 100 MG Cap PO PRN (18:11)
--- NOTE | 2019-10-30 18:28 | PCM.HP ---
H&P History of Present Illness - General Date of Service: 10/30/19 Admit Problem/Dx: Admission Diagnosis/Problem Admission Diagnosis/Problem Contusion of brain without loss of consciousness Source of Information: Patient History Limitations: Reports: No Limitations - History of Present Illness Initial Comments - Free Text/Narative: Amanda is a 69-year-old female with past medical history significant for CAD status post stent x3, diabetes, hypertension, history of vertigo who was brought to the ED for evaluation following a fall at home via EMS. Patient says she was at work today. As per patient she was going downstairs for lunch when she fell down the stairs about 15 stairs down. She reports that her shoe got trapped in between the first and second stages. She denies any prodrome. She had no dizziness, chest pain, palpitation prior to fall. She did not pass out. She sustained headache and laceration to the back of the head. In the ED CT head was negative for acute intracranial process except for scalp hematoma. Cervical CT was negative for fractures. Laceration was sutured. Patient was being planned for discharge but she continued to have nausea and dizziness. She received Zofran with no improvement. She was sent for admission for further management. At the time of this evaluation she denies fever, chills, chest pain, shortness of breath. She reports dizziness and headaches. She has nausea without vomiting. Her vitals are unremarkable. Labs unremarkable. Improves with: Reports: None Worsens with: Reports: None Associated Symptoms: Reports: No Other Symptoms - Related Data Allergies/Adverse Reactions: Allergies Allergy/AdvReac Type Severity Reaction Status Date / Time isosorbide Allergy Rash Verified 10/30/19 12:30 oxycodone Allergy Other Verified 10/30/19 12:30 Home Medications: Home Meds Aspirin/Calcium Carbonate/Mag [Aspirin Buffered 325 mg Tab] 325 mg PO DAILY 10/24 [History] Dimenhydrinate [Dramamine] 50 mg PO DAILY PRN 07/12/14 [History] Metoprolol Tartrate [Lopressor] 150 mg PO DAILY 07/12/14 [History] Nitroglycerin [Nitrostat] 0.4 mg SL ASDIRECTED 07/12/14 [History] Sertraline [Zoloft] 50 mg PO DAILY 07/12/14 [History] Telmisartan [Micardis] 20 mg PO DAILY 07/12/14 [History] atorvaSTATin [Lipitor] 40 mg PO DAILY 07/12/14 [History] Aspirin 325 mg PO Q12HR PRN 10/02/18 [History] Amitriptyline [Elavil] 10 mg PO BEDTIME 10/30/19 [History] Past Medical History HEENT History: Reports: Cataract, Other (See Below) Other HEENT History: WEARS CORRECTIVE LENSES Cardiovascular History: Reports: Arrhythmia, CAD, High Cholesterol, Hypertension , Syncope, Other (See Below) Other Cardiovascular History: MILD AORTIC STENOSIS; MITRAL REGURGITATION; PARAXOSYMAL ATRIAL TACHYCARDIA. 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 Psychiatric History: Reports: Depression Endocrine/Metabolic History: Reports: Diabetes, Type II, Obesity/BMI 30+ Hematologic History: Reports: B12 Deficiency Immunologic History: Reports: None Oncologic (Cancer) History: Reports: None Dermatologic History: Reports: None - Infectious Disease History Infectious Disease History: Reports: Chicken Pox, Shingles - Past Surgical History Head Surgeries/Procedures: Reports: None HEENT Surgical History: Reports: Cataract Surgery Cardiovascular Surgical History: Reports: Coronary Artery Bypass, Coronary Artery Stent GI Surgical History: Reports: Appendectomy, Bariatric Procedure, Cholecystectomy , EGD Female Surgical History: Reports: Section, Hysterectomy Musculoskeletal Surgical History: Reports: Carpal Tunnel Social & Family History - Family History HEENT: Reports: Cataract, Glaucoma, Impaired Vision Cardiac: Reports: CAD, Hypertension Musculoskeletal: Reports: Arthritis Neurological: Reports: CVA Endocrine/Metabolic: Reports: Diabetes, type II - Caffeine Use Caffeine Use: Reports: Coffee H&P Review of Systems - Review of Systems: Review Of Systems: See Below General: Reports: No Symptoms HEENT: Reports: Headaches Pulmonary: Reports: No Symptoms Cardiovascular: Reports: No Symptoms Gastrointestinal: Reports: Nausea Musculoskeletal: Reports: Neck Pain Skin: Reports: No Symptoms Psychiatric: Reports: No Symptoms Neurological: Reports: Dizziness Hematologic/Lymphatic: Reports: No Symptoms Immunologic: Reports: No Symptoms Exam - Exam Exam: See Below - Exam Quality Assessment: DVT Prophylaxis General: Alert, Oriented, 4 HEENT: PERRLA, Hearing Intact, Mucosa Moist & [place], Nares Patent, Normal Nasal Septum, Posterior Pharynx Clear, Conjunctiva Clear, EOMI, EACs Clear, TMs Clear Neck: Supple, Trachea Midline, 2 Lungs: Clear to Auscultation, Normal Respiratory Effort Cardiovascular: Regular Rate, Regular Rhythm GI/Abdominal Exam: Normal Bowel Sounds, Soft, Non-Tender, No Organomegaly, No Distention, No Abnormal Bruit, No Mass, Pelvis Stable (Female) Exam: Normal External Exam, Normal Speculum Exam, Normal Bimanual Exam Rectal (Female) Exam: Normal Exam, Normal Rectal Tone Back Exam: Normal Inspection, Full Range of Motion, NT Extremities: Normal Inspection, Normal Range of Motion, Non-Tender, No Pedal Edema, Normal Capillary Refill Skin: Warm, Dry, Intact Neurological: Cranial Nerves Intact, Reflexes Equal Bilateral Neuro Extensive - Mental Status: Alert, Oriented x3, Normal Mood/Affect, Normal Cognition Neuro Extensive - Motor, Sensory, Reflexes: CN II-XII Intact, Normal Gait, Normal Reflexes Psychiatric: Alert, Normal Affect, Normal Mood - Patient Data Lab Results Last 24 hrs: Laboratory Results - last 24 hr 10/30/19 10/30/19 Range/Units 12:05 12:05 WBC 7.8 (5.0-10.0) 10^3/uL RBC 4.22 (4.2-5.4) 10^6/uL Hgb 12.9 (12.0-16.0) g/dL Hct 40.3 (37.0-47.0) % MCV 95.5 (80-100) fL MCH 30.6 (27.0-34.0) pg MCHC 32.0 L (33.0-35.0) g/dL Plt Count 307 (150-450) 10^3/uL Neut % (Auto) 63.5 (42.2-75.2) % Lymph % (Auto) 25.8 (20.5-50.1) % [place] % (Auto) 8.5 H (2-8) % Eos % (Auto) 1.9 (1.0-3.0) % Baso % (Auto) 0.3 (0.0-1.0) % Sodium 137 (135-145) mmol/L Potassium 4.3 (3.6-5.0) mmol/L Chloride 104 (101-111) mmol/L Carbon Dioxide 23.0 (21.0-31.0) mmol/L Anion Gap 14.3 BUN 11 (7-18) mg/dL Creatinine 1.0 (0.6-1.3) mg/dL Est Cr Clr Drug Dosing TNP Estimated GFR (MDRD) 55 BUN/Creatinine Ratio 11.00 Glucose 122 H (74-105) mg/dL Calcium 9.3 (8.4-10.2) mg/dl Total Bilirubin 0.5 (0.2-1.0) mg/dL AST 17 (10-42) IU/L ALT 13 (10-60) IU/L Alkaline Phosphatase 76 (42-121) IU/L Total Protein 7.0 (6.7-8.2) g/dl Albumin 3.7 (3.2-5.5) g/dl Globulin 3.3 Albumin/Globulin Ratio 1.12 Result Diagrams: 10/30/19 12:05 10/30/19 12:05 - Problem List (1) Atypical chest pain SNOMED Code(s): 364095557 ICD Code: R07.89 - OTHER CHEST PAIN Status: Acute Current Visit: No (2) Fall down stairs SNOMED Code(s): 778857653 ICD Code: W10.8XXA - FALL (ON) (FROM) OTHER STAIRS AND STEPS, INITIAL ENCOUNTER Status: Acute Current Visit: No Qualifiers: Encounter type: initial encounter Qualified Code(s): W10.8XXA - Fall (on) ( from) other stairs and steps, initial encounter (3) Laceration of head SNOMED Code(s): 928370514 ICD Code: S01.91XA - LACERATION W/O FOREIGN BODY OF UNSP PART OF HEAD, INIT Status: Acute Current Visit: No Qualifiers: Encounter type: initial encounter Location of open wound of head: scalp Foreign body presence: without foreign body Qualified Code(s): S01.01XA - Laceration without foreign body of scalp, initial encounter Problem List Initiated/Reviewed/Updated: Yes Orders Last 24hrs: Active Orders 24 hr Category Date Time Status Admission Diagnosis [ADT] Stat ADT 10/30/19 17:27 Ordered Admission Status [Patient Status] [ADT] Routine ADT 10/30/19 17:27 Active Bedrest Bathroom Privileges [RC] ASDIRECTED Care 10/30/19 18:11 Ordered Height and Weight [RC] DAILY Care 10/30/19 18:11 Ordered Intake and Output [RC] QSHIFT Care 10/30/19 18:11 Ordered Notify Provider Vital Signs [RC] ASDIRECTED Care 10/30/19 18:11 Ordered Oxygen Therapy [RC] PRN Care 10/30/19 18:11 Ordered VTE/DVT Education [RC] PER UNIT ROUTINE Care 10/30/19 18:11 Ordered Vital Signs [RC] Q4H Care 10/30/19 18:11 Ordered OT Evaluation and Treatment [CONS] Routine Cons 10/30/19 18:11 Ordered PT Evaluation and Treatment [CONS] Routine Cons 10/30/19 18:11 Ordered Heart Healthy Diet [DIET] Diet 10/30/19 Dinner Ordered BASIC METABOLIC PANEL,BMP [CHEM] DAILY Lab 10/31/19 07:00 Ordered CBC W/O DIFF,HEMOGRAM [HEME] DAILY Lab 10/31/19 07:00 Ordered UA RFX CHRISTIE AND CULT IF INDIC [URIN] Urgent Lab 10/30/19 12:01 Ordered Acetaminophen [Tylenol] Med 10/30/19 18:11 Ordered 650 mg PO Q4H PRN Docusate Sodium [Colace] Med 10/30/19 18:11 Ordered 100 mg PO BID PRN Enoxaparin [Lovenox] Med 10/31/19 09:00 Ordered 40 mg SUBCUT DAILY Magnesium Hydroxide [Milk of Magnesia] Med 10/30/19 18:11 Ordered 30 ml PO Q12H PRN Sodium Chloride 0.9% [Normal Saline] 1,000 ml Med 10/30/19 17:26 Active IV ASDIRECTED Resuscitation Status Routine Resus Stat 10/30/19 18:11 Ordered Medication Orders Acetaminophen (Tylenol) 650 mg PO Q4H PRN PRN Reason: Pain (Mild 1-3)/fever Docusate Sodium (Colace) 100 mg PO BID PRN PRN Reason: Constipation Enoxaparin Sodium (Lovenox) 40 mg SUBCUT DAILY [facility] Sodium Chloride (Normal Saline) 1,000 mls @ 75 mls/hr IV ASDIRECTED JORDY Last Admin: 10/30/19 17:55 Dose: 75 mls/hr Magnesium Hydroxide (Milk Of Magnesia) 30 ml PO Q12H PRN PRN Reason: Constipation Assessment/Plan Comment:: #Contusion injury/scalp hematoma/laceration to back of head s/p mechanical fall -Patient tripped and fell down the stairs was at work -She sustained laceration to the back of the head. Status post seizure -Patient continued to have dizziness and nausea -CT head negative for acute hemorrhage -CT negative for fractures -Admit to medical floor -Monitor vitals -IV fluids -Zofran PRN for nausea vomiting -Frequent neuro exam -Fall precautions -PT/OT -Adequate pain control #History of vertigo -Continue home medication #CAD status post stent -Stable. Continue home medication #Diabetes type 2 -Continue home medication #Diabetic diet #DN/ DNR
[2019-10-30] MEDS ORDERED: DIMENHYDRINATE 50 MG PO PRN (18:35)
[2019-10-30] MEDS ORDERED: Nitroglycerin 0.4 MG Tab.SL SL SCH (18:45)
[2019-10-30] MEDS: Acetaminophen 325 MG Tab PO PRN (19:05)
[2019-10-30] MEDS ORDERED: Amitriptyline 10 MG Tab PO SCH (21:00)
[2019-10-31] MEDS: Acetaminophen 325 MG Tab PO PRN (03:46)
[2019-10-31 06:59] LABS: ANION GAP 12.1; CHLORIDE,CL 101 mmol/L (101-111); SODIUM,NA 137 mmol/L (135-145)
[2019-10-31 07:36] VITALS: BP 133/56; PULSE 48
[2019-10-31] MEDS: Sodium Chloride 0.9% 1,000 ML IV SCH (08:13)
[2019-10-31] MEDS ORDERED: atorvaSTATin 20 MG Tab PO SCH (09:00)
[2019-10-31] MEDS ORDERED: Enoxaparin 40 MG/0.4 ML Syringe SUBCUT SCH (09:00)
[2019-10-31] MEDS ORDERED: Sertraline 50 MG Tab PO SCH (09:00)
[2019-10-31] MEDS ORDERED: TELMISARTAN 20 MG PO SCH (09:00)
[2019-10-31] MEDS ORDERED: Metoprolol Tartrate 50 MG Tab PO SCH (09:00)
--- NOTE | 2019-10-31 09:06 | PCM.DCSUM1 ---
Discharge Summary - Hospital Course Free Text/Narrative:: Amanda is a 69-year-old female with past medical history significant for CAD status post stent x 3, diabetes, hypertension, history of vertigo who was brought to the ED for evaluation laceration to the back of the head following a mechanical fall. CT head was negative for acute intracranial process except for scalp hematoma. Cervical CT was negative for fractures. Laceration was sutured. Patient was being planned for discharge but she continued to have nausea and dizziness. She received Zofran with no improvement. She was admitted for further management. She was managed conservatively. Her symptoms improved. Dizziness and nausea has resolved this morning. She was discharged in a stable condition. She will follow-up with PCP. Diagnosis: Stroke: No - Discharge Data Discharge Date: 10/31/19 Discharge Disposition: Home, Self-Care 01 Condition: Good - Referral to Home Health Primary Care Physician: [facility] - Discharge Diagnosis/Problem(s) (1) Atypical chest pain SNOMED Code(s): 728261440 ICD Code: R07.89 - OTHER CHEST PAIN Status: Acute Current Visit: No (2) Fall down stairs SNOMED Code(s): 858327419 ICD Code: W10.8XXA - FALL (ON) (FROM) OTHER STAIRS AND STEPS, INITIAL ENCOUNTER Status: Acute Current Visit: No Qualifiers: Encounter type: initial encounter Qualified Code(s): W10.8XXA - Fall (on) ( from) other stairs and steps, initial encounter (3) Laceration of head SNOMED Code(s): 202400329 ICD Code: S01.91XA - LACERATION W/O FOREIGN BODY OF UNSP PART OF HEAD, INIT Status: Acute Current Visit: No Qualifiers: Encounter type: initial encounter Location of open wound of head: scalp Foreign body presence: without foreign body Qualified Code(s): S01.01XA - Laceration without foreign body of scalp, initial encounter - Patient Summary/Data Consults: Consultations 10/30/19 18:11 OT Evaluation and Treatment [CONS] Routine PT Evaluation and Treatment [CONS] Routine - Patient Instructions Diet: Heart Healthy Diet Activity: As Tolerated Showering/Bathing: May Shower Notify Provider of: Nausea and/or Vomiting - Discharge Plan *PRESCRIPTION DRUG MONITORING PROGRAM REVIEWED*: Not Applicable *COPY OF PRESCRIPTION DRUG MONITORING REPORT IN PATIENT ABDIFATAH: Not Applicable Home Medications: Home Meds Aspirin/Calcium Carbonate/Mag [Aspirin Buffered 325 mg Tab] 325 mg PO DAILY 10/24 [History] Dimenhydrinate [Dramamine] 50 mg PO DAILY PRN 07/12/14 [History] Metoprolol Tartrate [Lopressor] 150 mg PO DAILY 07/12/14 [History] Nitroglycerin [Nitrostat] 0.4 mg SL ASDIRECTED 07/12/14 [History] Sertraline [Zoloft] 50 mg PO DAILY 07/12/14 [History] Telmisartan [Micardis] 20 mg PO DAILY 07/12/14 [History] atorvaSTATin [Lipitor] 40 mg PO DAILY 07/12/14 [History] Aspirin 325 mg PO Q12HR PRN 10/02/18 [History] Amitriptyline [Elavil] 10 mg PO BEDTIME 10/30/19 [History] Oxygen Therapy Mode: Room Air Patient Handouts: Head Injury, Adult, [id number], Laceration Care, Adult, [id number], Stitches, [place], or Adhesive Wound Closure, [id number] Forms: ED Department Discharge Referrals: [facility] [Primary Care Provider] - - Discharge Summary/Plan Comment DC Time >30 min.: Yes - General Info Date of Service: 10/31/19 Admission Dx/Problem (Free Text: Admission Diagnosis/Problem Admission Diagnosis/Problem Contusion of brain without loss of consciousness Functional Status: Reports: Pain Controlled - Review of Systems General: Reports: No Symptoms HEENT: Reports: No Symptoms Pulmonary: Reports: No Symptoms Cardiovascular: Reports: No Symptoms Gastrointestinal: Reports: No Symptoms Genitourinary: Reports: No Symptoms Musculoskeletal: Reports: No Symptoms Skin: Reports: No Symptoms Neurological: Reports: No Symptoms Psychiatric: Reports: No Symptoms - Patient Data Vitals - Most Recent: Last Vital Signs Temp 96.9 F 10/31/19 07:35 Pulse 48 L 10/31/19 08:11 Resp 18 10/31/19 07:35 BP 133/56 L 10/31/19 08:11 Pulse Ox 98 10/31/19 07:35 Weight - Most Recent: 203 lb 6.4 oz I&O - Last 24 hours: Intake & Output 10/30/19 10/31/19 10/31/19 22:59 06:59 14:59 Intake Total 1762 Output Total 450 Balance 1312 Lab Results - Last 24 hrs: Laboratory Results - last 24 hr 10/30/19 10/30/19 10/31/19 Range/Units 12:05 12:05 03:50 WBC 7.8 (5.0-10.0) 10^3/uL RBC 4.22 (4.2-5.4) 10^6/uL Hgb 12.9 (12.0-16.0) g/dL Hct 40.3 (37.0-47.0) % MCV 95.5 (80-100) fL MCH 30.6 (27.0-34.0) pg MCHC 32.0 L (33.0-35.0) g/dL Plt Count 307 (150-450) 10^3/uL Neut % (Auto) 63.5 (42.2-75.2) % Lymph % (Auto) 25.8 (20.5-50.1) % [place] % (Auto) 8.5 H (2-8) % Eos % (Auto) 1.9 (1.0-3.0) % Baso % (Auto) 0.3 (0.0-1.0) % Sodium 137 (135-145) mmol/L Potassium 4.3 (3.6-5.0) mmol/L Chloride 104 (101-111) mmol/L Carbon Dioxide 23.0 (21.0-31.0) mmol/L Anion Gap 14.3 BUN 11 (7-18) mg/dL Creatinine 1.0 (0.6-1.3) mg/dL Est Cr Clr Drug Dosing TNP Estimated GFR (MDRD) 55 BUN/Creatinine Ratio 11.00 Glucose 122 H (74-105) mg/dL Calcium 9.3 (8.4-10.2) mg/dl Total Bilirubin 0.5 (0.2-1.0) mg/dL AST 17 (10-42) IU/L ALT 13 (10-60) IU/L Alkaline Phosphatase 76 (42-121) IU/L Total Protein 7.0 (6.7-8.2) g/dl Albumin 3.7 (3.2-5.5) g/dl Globulin 3.3 Albumin/Globulin Ratio 1.12 Urine Color Yellow (YELLOW) Urine Appearance Slightly cloudy (CLEAR) Urine pH 6.5 (5.0-9.0) Ur Specific [place] 1.025 (1.005-1.030) Urine Protein Negative (NEGATIVE) Urine Glucose (UA) Negative (NEGATIVE) Urine Ketones Negative (NEGATIVE) Urine Occult Blood Negative (NEGATIVE) Urine Nitrite Negative (NEGATIVE) Urine Bilirubin Negative (NEGATIVE) Urine Urobilinogen 0.2 (0.2-1.0) mg/dL Ur Leukocyte Esterase Trace H (NEGATIVE) Urine RBC Not seen /HPF Urine WBC 20-30 H (0-5/HPF) /HPF Ur Epithelial Cells Moderate H (NOT SEEN) /HPF Urine Bacteria Moderate H (0-FEW/HPF) /HPF Urine Mucus Moderate H (NOT SEEN) /LPF 10/31/19 10/31/19 Range/Units 05:55 05:55 WBC 8.1 (5.0-10.0) 10^3/uL RBC 3.80 L (4.2-5.4) 10^6/uL Hgb 11.6 L (12.0-16.0) g/dL Hct 37.6 (37.0-47.0) % MCV 98.9 D (80-100) fL MCH 30.5 (27.0-34.0) pg MCHC 30.9 L (33.0-35.0) g/dL Plt Count 286 (150-450) 10^3/uL Neut % (Auto) (42.2-75.2) % Lymph % (Auto) (20.5-50.1) % [place] % (Auto) (2-8) % Eos % (Auto) (1.0-3.0) % Baso % (Auto) (0.0-1.0) % Sodium 137 (135-145) mmol/L Potassium 5.1 H (3.6-5.0) mmol/L Chloride 101 (101-111) mmol/L Carbon Dioxide 29.0 (21.0-31.0) mmol/L Anion Gap 12.1 BUN 11 (7-18) mg/dL Creatinine 0.9 (0.6-1.3) mg/dL Est Cr Clr Drug Dosing 46.66 Estimated GFR (MDRD) > 60 BUN/Creatinine Ratio Glucose 105 (74-105) mg/dL Calcium 9.2 (8.4-10.2) mg/dl Total Bilirubin (0.2-1.0) mg/dL AST (10-42) IU/L ALT (10-60) IU/L Alkaline Phosphatase (42-121) IU/L Total Protein (6.7-8.2) g/dl Albumin (3.2-5.5) g/dl Globulin Albumin/Globulin Ratio Urine Color (YELLOW) Urine Appearance (CLEAR) Urine pH (5.0-9.0) Ur Specific [place] (1.005-1.030) Urine Protein (NEGATIVE) Urine Glucose (UA) (NEGATIVE) Urine Ketones (NEGATIVE) Urine Occult Blood (NEGATIVE) Urine Nitrite (NEGATIVE) Urine Bilirubin (NEGATIVE) Urine Urobilinogen (0.2-1.0) mg/dL Ur Leukocyte Esterase (NEGATIVE) Urine RBC /HPF Urine WBC (0-5/HPF) /HPF Ur Epithelial Cells (NOT SEEN) /HPF Urine Bacteria (0-FEW/HPF) /HPF Urine Mucus (NOT SEEN) /LPF Med Orders - Current: Current Medications Acetaminophen (Tylenol) 650 mg PO Q4H PRN PRN Reason: Pain (Mild 1-3)/fever Last Admin: 10/31/19 03:46 Dose: 650 mg Amitriptyline HCl (Elavil) 10 mg PO BEDTIME [facility] Last Admin: 10/30/19 20:49 Dose: 10 mg Atorvastatin Calcium (Lipitor) 40 mg PO DAILY [facility] Last Admin: 10/31/19 08:12 Dose: 40 mg Docusate Sodium (Colace) 100 mg PO BID PRN PRN Reason: Constipation Enoxaparin Sodium (Lovenox) 40 mg SUBCUT DAILY [facility] Last Admin: 10/31/19 08:13 Dose: 40 mg Sodium Chloride (Normal Saline) 1,000 mls @ 75 mls/hr IV ASDIRECTED [facility] Last Admin: 10/31/19 08:13 Dose: 75 mls/hr Magnesium Hydroxide (Milk Of Magnesia) 30 ml PO Q12H PRN PRN Reason: Constipation Metoprolol Tartrate (Lopressor) 150 mg PO DAILY [facility] Last Admin: 10/31/19 08:11 Dose: 150 mg Nitroglycerin (Nitrostat) 0.4 mg SL ASDIRECTED [facility] Dimenhydrinate [ Dramamine] 50 Mg # Patient's Own# 50 mg PO DAILY PRN PRN Reason: Nausea/Vomiting Non-Formulary Medication (Telmisartan [Micardis]) 20 mg PO DAILY [facility] Sertraline HCl (Zoloft) 50 mg PO DAILY [facility] Last Admin: 10/31/19 08:12 Dose: 50 mg Discontinued Medications Lidocaine/Epinephrine (Xylocaine-Mpf 2%-Epi 1:200,000) 20 ml INJECT ONETIME ONE Stop: 10/30/19 13:01 Last Admin: 10/30/19 13:26 Dose: 20 ml Meclizine HCl (Antivert) 12.5 mg PO ONETIME ONE Stop: 10/30/19 13:58 Last Admin: 10/30/19 14:04 Dose: 12.5 mg Metoclopramide HCl (Reglan) 10 mg PO ONETIME ONE Stop: 10/30/19 16:24 Last Admin: 10/30/19 16:29 Dose: 10 mg Ondansetron HCl (Zofran) Confirm Administered Dose 4 mg .ROUTE .STK-MED ONE Stop: 10/30/19 11:59 Last Admin: 10/30/19 12:24 Dose: Not Given Ondansetron HCl (Zofran) 4 mg IVPUSH ONETIME ONE Stop: 10/30/19 12:10 Last Admin: 10/30/19 12:02 Dose: 4 mg - Exam General: Reports: Alert, Oriented HEENT: Reports: Pupils Equal, Pupils Reactive, EOMI, Mucous Membr. Moist/Flasher Neck: Reports: Supple Lungs: Reports: Clear to Auscultation, Normal Respiratory Effort Cardiovascular: Reports: Regular Rate, Regular Rhythm GI/Abdominal Exam: Normal Bowel Sounds, Soft, Non-Tender, No Organomegaly, No Distention, No Abnormal Bruit, No Mass, Pelvis Stable (Female) Exam: Normal External Exam, Normal Speculum Exam, Normal Bimanual Exam Rectal (Female) Exam: Normal Exam, Normal Rectal Tone Back Exam: Reports: Normal Inspection, Full Range of Motion Extremities: Normal Inspection, Normal Range of Motion, Non-Tender, No Pedal Edema, Normal Capillary Refill Skin: Reports: Warm, Dry, Intact Wound/Incisions: Reports: Healing Well Neurological: Reports: No New Focal Deficit Psy/Mental Status: Reports: Alert, Normal Affect, Normal Mood
[2019-10-31] MEDS ORDERED: DIMENHYDRINATE 50 MG PO ONE (10:00)
== END 2019-10-31 11:30 | disposition home or self-care (01) ==
LOC: DL.ED 11:55 → DL.MS 17:27
PROVIDERS: ADMIT Student in an Organized Health Care Education/Training Program; ATTEND Student in an Organized Health Care Education/Training Program
DX: S01.01XA Laceration without foreign body of scalp, initial encounter (principal); R11.2 Nausea with vomiting, unspecified; R42 Dizziness and giddiness; R07.89 Other chest pain; I25.10 Atherosclerotic heart disease of native coronary artery without angina pectoris; E11.9 Type 2 diabetes mellitus without complications; I10 Essential (primary) hypertension; E78.00 Pure hypercholesterolemia, unspecified; I69.954 Hemiplegia and hemiparesis following unspecified cerebrovascular disease affecting left non-dominant side; M19.90 Unspecified osteoarthritis, unspecified site; E66.9 Obesity, unspecified; Z68.37 Body mass index [BMI] 37.0-37.9, adult; Z88.8 Allergy status to other drugs, medicaments and biological substances; Z86.711 Personal history of pulmonary embolism; Z86.718 Personal history of other venous thrombosis and embolism; Z82.49 Family history of ischemic heart disease and other diseases of the circulatory system; Z79.82 Long term (current) use of aspirin; Z79.899 Other long term (current) drug therapy; Z95.5 Presence of coronary angioplasty implant and graft; W10.8XXA Fall (on) (from) other stairs and steps, initial encounter; Y92.009 Unspecified place in unspecified non-institutional (private) residence as the place of occurrence of the external cause
CPT/HCPCS: 12002; 36415; 70450; 72125; 80048; 80053; 81001; 85025; 85027; 87086; 96361; 96372; 96374; 97162-GP; 97165-GO; 99283; 99285-25; A9270-GY; G0378; J1650; J2405; J7030

== ENCOUNTER 2021-06-17 00:02 | Emergency (ER) | payer MEDICARE, OTHER ==
[2021-06-17 00:14] VITALS: BP 147/80; PULSE 57
--- NOTE | 2021-06-17 00:20 | EDM.PDOC ---
ED HPI GENERAL MEDICAL PROBLEM - General Chief Complaint: Chest Pain Stated Complaint: CHEST PAIN,PREVIOUS HEART CONDITION, ON NITRO Time Seen by Provider: 06/17/21 00:16 Source of Information: Reports: Patient, RN, RN Notes Reviewed History Limitations: Reports: No Limitations - History of Present Illness INITIAL COMMENTS - FREE TEXT/NARRATIVE: Amanda is a 71 y/o female with a history of CAD, s/p CABG x4 with stent placement, who presents to the ED via personal vehicle with complaints of chest pain. The patient reports her pain began abruptly about an hour and a half ago while she was laying in bed. She characterizes the pain as sharp, which wraps around her chest bilaterally and radiates into her back. She took three doses of Nitro, five minutes apart, bringing the pain from an 8 to a current 0. She denies recent illness, fever, shaking chills, cough, sore throat, palpitations, shortness of breath, nausea, vomiting, or abdominal pain. She denies a history of tobacco, alcohol, or recreational drug use. Mid-Sternal Chest Pain Score (Numeric/FACES): 3 - Related Data Allergies Allergy/AdvReac Type Severity Reaction Status Date / Time isosorbide Allergy Rash Verified 10/30/19 12:30 oxycodone Allergy Other Verified 10/30/19 12:30 Home Meds: Home Meds Aspirin/Calcium Carbonate/Mag [Aspirin Buffered 325 mg Tab] 325 mg PO DAILY 07/12/14 [History] Metoprolol Tartrate [Lopressor] 150 mg PO DAILY 07/12/14 [History] Nitroglycerin [Nitrostat] 0.4 mg SL ASDIRECTED 07/12/14 [History] Sertraline [Zoloft] 50 mg PO DAILY 07/12/14 [History] Telmisartan [Micardis] 20 mg PO DAILY 07/12/14 [History] atorvaSTATin [Lipitor] 40 mg PO DAILY 07/12/14 [History] dimenhyDRINATE [Dramamine] 50 mg PO DAILY PRN 07/12/14 [History] Aspirin 325 mg PO Q12HR PRN 10/02/18 [History] Amitriptyline [Elavil] 10 mg PO BEDTIME 10/30/19 [History] Past Medical History HEENT History: Reports: Cataract, Other (See Below) Other HEENT History: WEARS CORRECTIVE LENSES Cardiovascular History: Reports: Arrhythmia, CAD, High Cholesterol, Hypertension, Syncope, Other (See Below) Other Cardiovascular History: MILD AORTIC STENOSIS; MITRAL REGURGITATION; PARAXOSYMAL ATRIAL TACHYCARDIA. 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 Psychiatric History: Reports: Depression Endocrine/Metabolic History: Reports: Diabetes, Type II, Obesity/BMI 30+ Hematologic History: Reports: B12 Deficiency Immunologic History: Reports: None Oncologic (Cancer) History: Reports: None Dermatologic History: Reports: None - Infectious Disease History Infectious Disease History: Reports: Chicken Pox, Shingles - Past Surgical History Head Surgeries/Procedures: Reports: None HEENT Surgical History: Reports: Cataract Surgery Cardiovascular Surgical History: Reports: Coronary Artery Bypass, Coronary Artery Stent GI Surgical History: Reports: Appendectomy, Bariatric Procedure, Cholecystectomy, EGD Female Surgical History: Reports: Section, Hysterectomy Musculoskeletal Surgical History: Reports: Carpal Tunnel Social & Family History - Family History Family Medical History: No Pertinent Family History HEENT: Reports: Cataract, Glaucoma, Impaired Vision Cardiac: Reports: CAD, Hypertension Musculoskeletal: Reports: Arthritis Neurological: Reports: CVA Endocrine/Metabolic: Reports: Diabetes, type II - Tobacco Use Tobacco Use Status *Q: Never Tobacco User Second Hand Smoke Exposure: No - Caffeine Use Caffeine Use: Reports: Coffee - Recreational Drug Use Recreational Drug Use: No ED ROS GENERAL - Review of Systems Review Of Systems: Comprehensive ROS is negative, except as noted in HPI. ED EXAM, GENERAL - Physical Exam Exam: See Below Exam Limited By: No Limitations General Appearance: Alert, Anxious Eye Exam: Bilateral Eye: EOMI, Normal Inspection, PERRL (3mm) Ears: Normal External Exam, Normal Canal, Hearing Grossly Normal, Normal TMs Nose: Normal Inspection, Normal Mucosa, No Blood Throat/Mouth: Normal Inspection, Normal Oropharynx, Normal Voice, No Airway Compromise Head: Atraumatic, Normocephalic Neck: Normal Inspection, Supple, Non-Tender, Full Range of Motion Respiratory/Chest: No Respiratory Distress, Lungs Clear, Normal Breath Sounds, No Accessory Muscle Use, Chest Non-Tender Cardiovascular: Normal Peripheral Pulses, Regular Rate, Rhythm, No Edema, No Gallop, No JVD, No Murmur, No Rub, Bradycardia Peripheral Pulses: 2+: Radial (L), Radial (R) GI/Abdominal: Normal Bowel Sounds, Soft, Non-Tender, No Distention, No Abnormal Bruit, No Mass, Pelvis Stable (Female) Exam: Deferred Rectal (Female) Exam: Deferred Back Exam: Normal Inspection, Full Range of Motion Extremities: Normal Inspection, Normal Range of Motion, Non-Tender, No Pedal Edema, Normal Capillary Refill Neurological: Alert, Oriented, CN II-XII Intact, Normal Cognition, Normal Gait, No Motor/Sensory Deficits Psychiatric: Normal Affect, Normal Mood Skin Exam: Warm, Dry, Intact, Normal Color, No Rash. No: Cyanosis, Jaundice, Mottled, Pallor #1 Interpretation EKG Date: 06/17/21 Time: 00:12 Rhythm: Other (Sinus Bradycardia) Rate (Beats/Min): 57 [place]: Normal P-Wave: Present QRS: Normal ST-T: Depressed (Minimal in V-V4) QT: Normal TN/PQ Interval: 0.152 Comparison: Change From Previous EKG (10/02/18) EKG Interpretation Comments: SB;q-wave in III; Minimal depression in V1-V4; No evidence of acute myocardial ischemia Course - Vital Signs Last Recorded V/S: Last Vital Signs Temp 98 F 06/17/21 00:06 Pulse 57 L 06/17/21 00:06 Resp 18 06/17/21 00:06 BP 147/80 H 06/17/21 00:06 Pulse Ox 94 L 06/17/21 00:06 - Orders/Labs/Meds Labs: Laboratory Tests 06/17/21 06/17/21 06/17/21 Range/Units 00:27 00:27 00:27 WBC 8.6 (5.0-10.0) 10^3/uL RBC 4.15 L (4.2-5.4) 10^6/uL Hgb 12.5 (12.0-16.0) g/dL Hct 40.2 (37.0-47.0) % MCV 96.9 (80-100) fL MCH 30.1 (27.0-34.0) pg MCHC 31.1 L (33.0-35.0) g/dL Plt Count 268 (150-450) 10^3/uL Neut % (Auto) 69.6 (42.2-75.2) % Lymph % (Auto) 20.2 L (20.5-50.1) % Webb % (Auto) 8.0 (2-8) % Eos % (Auto) 2.0 (1.0-3.0) % Baso % (Auto) 0.2 (0.0-1.0) % Sodium 141 (136-145) mmol/L Potassium 3.9 (3.5-5.1) mmol/L Chloride 103 (98-107) mmol/L Carbon Dioxide 29 (21-32) mmol/L Anion Gap 12.9 (7-13) mEq/L BUN 12 (7-18) mg/dL Creatinine 1.37 H (0.55-1.02) mg/dL Est Cr Clr Drug Dosing 29.79 mL/min Estimated GFR (MDRD) 38 BUN/Creatinine Ratio 8.8 (No establ ref range) Glucose 147 H (70-99) mg/dL Lactic Acid 1.0 (0.4-2.0) mmol/L Calcium 9.5 (8.5-10.1) mg/dL Total Bilirubin 0.1 L (0.2-1.0) mg/dL AST 13 L (15-37) U/L ALT 19 (14-59) U/L Alkaline Phosphatase 85 (46-116) U/L Troponin I High Sens 7 (<=51) pg/mL C-Reactive Protein 0.4 (0.0-0.9) mg/dL B-Natriuretic Peptide 113 H (0-100) pg/ml Total Protein 7.4 (6.4-8.2) g/dL Albumin 3.6 (3.4-5.0) g/dL Globulin 3.8 Albumin/Globulin Ratio 0.9 Amylase 37 (25-115) U/L Lipase 108 (73-393) U/L 06/17/21 Range/Units 04:55 WBC (5.0-10.0) 10^3/uL RBC (4.2-5.4) 10^6/uL Hgb (12.0-16.0) g/dL Hct (37.0-47.0) % MCV (80-100) fL MCH (27.0-34.0) pg MCHC (33.0-35.0) g/dL Plt Count (150-450) 10^3/uL Neut % (Auto) (42.2-75.2) % Lymph % (Auto) (20.5-50.1) % Webb % (Auto) (2-8) % Eos % (Auto) (1.0-3.0) % Baso % (Auto) (0.0-1.0) % Sodium (136-145) mmol/L Potassium (3.5-5.1) mmol/L Chloride (98-107) mmol/L Carbon Dioxide (21-32) mmol/L Anion Gap (7-13) mEq/L BUN (7-18) mg/dL Creatinine (0.55-1.02) mg/dL Est Cr Clr Drug Dosing mL/min Estimated GFR (MDRD) BUN/Creatinine Ratio (No establ ref range) Glucose (70-99) mg/dL Lactic Acid (0.4-2.0) mmol/L Calcium (8.5-10.1) mg/dL Total Bilirubin (0.2-1.0) mg/dL AST (15-37) U/L ALT (14-59) U/L Alkaline Phosphatase (46-116) U/L Troponin I High Sens 8 (<=51) pg/mL C-Reactive Protein (0.0-0.9) mg/dL B-Natriuretic Peptide (0-100) pg/ml Total Protein (6.4-8.2) g/dL Albumin (3.4-5.0) g/dL Globulin Albumin/Globulin Ratio Amylase (25-115) U/L Lipase (73-393) U/L Meds: Medications Discontinued Medications Generic Name Dose Route Start Last Admin Trade Name Freq PRN Reason Stop Dose Admin Acetaminophen 1,000 mg 06/17/21 00:48 06/17/21 00:54 Acetaminophen 500 Mg Tab PO 06/17/21 00:49 1,000 mg ONETIME ONE Administration - Re-Assessments/Exams Free Text/Narrative Re-Assessment/Exam: 06/17/21 ASA 325 chewable administered. EKG, CXR, and labs pending. Findings of examination, lab work, and imaging reviewed with patient. Will trend troponin and EKG given abrupt onset of chest pain in short time frame for presentation to this facility. Patient verbalized understanding and agreement with the plan of care. Repeat Troponin WNL and EKG reveals NSR; findings discussed with patient. Patient instructed to follow up with PCP in 3-5 days. Red flag signs and symptoms which would warrant immediate reevaluation reviewed. Patient verbalized understanding and agreement with the plan of care. Departure - Departure Time of Disposition: 05:41 Disposition: Home, Self-Care 01 Condition: Good Clinical Impression: Atypical chest pain Instructions: Nonspecific Chest Pain, Adult Referrals: PCP,None [Primary Care Provider] - Forms: ED Department Discharge Additional Instructions: 1.) Follow up with your primary care provider and law enforcement instructor regarding today's visit. 2.) Continue on your previously prescribed medications. 3.) Rest. 4.) Return to the emergency department with any return of symptoms.
[2021-06-17] MEDS ORDERED: Acetaminophen 500 MG Tab PO ONE (00:48)
[2021-06-17 01:13] LABS: ANION GAP 12.9 mEq/L (7-13)
== END 2021-06-17 05:52 | disposition home or self-care (01) ==
LOC: DL.ED 00:02
DX: R07.89 Other chest pain (principal); I25.10 Atherosclerotic heart disease of native coronary artery without angina pectoris; E78.00 Pure hypercholesterolemia, unspecified; I10 Essential (primary) hypertension; E11.9 Type 2 diabetes mellitus without complications; E66.9 Obesity, unspecified; Z68.34 Body mass index [BMI] 34.0-34.9, adult; Z95.1 Presence of aortocoronary bypass graft; Z86.73 Personal history of transient ischemic attack (TIA), and cerebral infarction without residual deficits; Z88.5 Allergy status to narcotic agent; Z88.8 Allergy status to other drugs, medicaments and biological substances
CPT/HCPCS: 36415; 80053; 82150; 83605; 83690; 83880; 84484; 85025; 86140; 93005; 99285-25; A9270-GY

== ENCOUNTER 2021-09-24 20:42 | Emergency (ER) | payer MEDICARE ==
[2021-09-24 21:15] VITALS: BP 121/87; PULSE 105
[2021-09-24 21:43] LABS: CORONAVIRUS COVID-19 NAA NEGATIVE (NEGATIVE)
[2021-09-24] MEDS ORDERED: Benzonatate 100 MG Cap PO ONE (22:35)
== END 2021-09-24 22:51 | disposition home or self-care (01) ==
LOC: DL.ED 20:42
DX: J10.1 Influenza due to other identified influenza virus with other respiratory manifestations (principal); I25.810 Atherosclerosis of coronary artery bypass graft(s) without angina pectoris; I10 Essential (primary) hypertension; E78.00 Pure hypercholesterolemia, unspecified; E11.21 Type 2 diabetes mellitus with diabetic nephropathy; M19.90 Unspecified osteoarthritis, unspecified site; E66.9 Obesity, unspecified; Z68.31 Body mass index [BMI] 31.0-31.9, adult; Z88.5 Allergy status to narcotic agent; Z88.8 Allergy status to other drugs, medicaments and biological substances; Z79.82 Long term (current) use of aspirin; Z79.899 Other long term (current) drug therapy; Z20.822 Contact with and (suspected) exposure to COVID-19
CPT/HCPCS: 0240U; 99283; 99284; A9270

== ENCOUNTER 2022-06-29 17:32 | Emergency (ER) | payer MEDICARE, OTHER ==
[2022-06-29 18:03] VITALS: BP 150/114; PULSE 72
[2022-06-29] MEDS: Aspirin 81 MG Tab.Chew PO ONE (18:31)
[2022-06-29] MEDS: Ondansetron 4 MG/2 ML SDV IVPUSH ONE (18:31)
[2022-06-29] MEDS: Sodium Chloride 0.9% 10 ML Syringe FLUSH PRN (18:33)
[2022-06-29 18:44] LABS: ANION GAP 13.4 mEq/L (7-13); CHLORIDE,CL 103 mmol/L (98-107); ESTIMATED GFR 74 mL/min (>=60); SODIUM,NA 142 mmol/L (136-145)
== END 2022-06-29 19:07 | disposition home or self-care (01) ==
LOC: DL.ED 17:32
DX: R07.9 Chest pain, unspecified (principal); E11.9 Type 2 diabetes mellitus without complications; E66.9 Obesity, unspecified; I10 Essential (primary) hypertension; I25.10 Atherosclerotic heart disease of native coronary artery without angina pectoris; E78.00 Pure hypercholesterolemia, unspecified; Z88.5 Allergy status to narcotic agent; Z88.8 Allergy status to other drugs, medicaments and biological substances; Z79.82 Long term (current) use of aspirin; Z79.899 Other long term (current) drug therapy; Z68.32 Body mass index [BMI] 32.0-32.9, adult
CPT/HCPCS: 36415; 71045; 80053; 83605; 83690; 83735; 84484; 85025; 86140; 93005; 96374; 99285; A9270; J2405; J3490; 93010; 99284

== ENCOUNTER 2023-02-19 18:49 | Emergency (ER) | payer MEDICARE, OTHER ==
[2023-02-19] MEDS ORDERED: Aspirin 81 MG Tab.Chew PO ONE (19:06)
[2023-02-19 19:13] LABS: BASOPHILS PERCENT AUTO 0.2 % (0.0-1.0); EOSINOPHILS PERCENT AUTO 1.9 % (1.0-3.0); HEMATOCRIT 43.4 % (37.0-47.0); HEMOGLOBIN 13.9 g/dL (12.0-16.0); LYMPHOCYTES PERCENT AUTO 27.7 % (20.5-50.1); MEAN CORPUSCULAR HEMOGLOBIN 30.3 pg (27.0-34.0); MEAN CORPUSCULAR VOLUME 94.6 fL (80-100); MONOCYTES PERCENT AUTO 8.4 % (2-8); NEUTROPHILS PERCENT AUTO 61.8 % (42.2-75.2); PLATELET COUNT,PLT 308 10^3/uL (150-450); RED BLOOD CELL COUNT 4.59 10^6/uL (4.2-5.4); WHITE BLOOD CELL COUNT,WBC 9.8 10^3/uL (5.0-10.0)
[2023-02-19 19:31] LABS: INR 0.9 (0.9-1.2); PROTHROMBIN TIME 9.1 SEC (9.0-12.0); PTT,PARTIAL THROMBOPLSTIN TIME 25.4 SEC (22.0-34.0)
[2023-02-19 19:33] VITALS: PULSE 70
[2023-02-19 19:36] LABS: A/G RATIO 0.9; ALANINE AMINOTRANSFERASE,ALT 15 U/L (14-59); ALBUMIN 3.6 g/dL (3.4-5.0); ALKALINE PHOSPHATASE 100 U/L (46-116); AMYLASE 35 U/L (25-115); ASPARTATE AMNIOTRANSFERASE,AST 10 U/L (15-37); B-TYPE NATRIURETIC PEPTIDE,BNP 39 pg/ml (0-100); BILIRUBIN TOTAL 0.1 mg/dL (0.2-1.0); BLOOD UREA NITROGEN,BUN 15 mg/dL (7-18); BUN/CREATININE RATIO 12.9 (No establ ref range); C-REACTIVE PROTEIN 0.9 mg/dL (0.0-0.9); CALCIUM 9.3 mg/dL (8.5-10.1); CARBON DIOXIDE,CO2 29 mmol/L (21-32); CHLORIDE,CL 101 mmol/L (98-107); CREATININE 1.16 mg/dL (0.55-1.02); GLUCOSE RANDOM 135 mg/dL (70-99); LIPASE 57 U/L (73-393); PROTEIN TOTAL,TP 7.4 g/dL (6.4-8.2); SODIUM,NA 139 mmol/L (136-145)
[2023-02-19 19:37] LABS: LACTIC ACID 1.2 mmol/L (0.4-2.0)
[2023-02-19 19:41] LABS: EST CRCL DRUG DOSING (CG) 34.16 mL/min
[2023-02-19 19:42] LABS: ESTIMATED GFR 50 mL/min (>=60); ETHANOL BLOOD MEDICAL < 3 mg/dL (0)
[2023-02-19] MEDS ORDERED: Sodium Chloride 0.9% 500 ML IV ONE (19:51)
[2023-02-19] MEDS ORDERED: Oseltamivir 75 MG Cap PO ONE (20:41)
[2023-02-19 21:13] VITALS: BP 135/78
== END 2023-02-19 21:05 | disposition home or self-care (01) ==
LOC: DL.ED 18:49
DX: I20.8 Other forms of angina pectoris (principal); J10.1 Influenza due to other identified influenza virus with other respiratory manifestations; I25.810 Atherosclerosis of coronary artery bypass graft(s) without angina pectoris; I10 Essential (primary) hypertension; E78.00 Pure hypercholesterolemia, unspecified; E11.21 Type 2 diabetes mellitus with diabetic nephropathy; E66.9 Obesity, unspecified; Z68.33 Body mass index [BMI] 33.0-33.9, adult; Z88.8 Allergy status to other drugs, medicaments and biological substances; Z79.899 Other long term (current) drug therapy; Z79.82 Long term (current) use of aspirin; Z20.822 Contact with and (suspected) exposure to COVID-19
CPT/HCPCS: 36415; 71045; 80053; 80307; 82150; 83605; 83690; 83735; 83880; 84484; 85025; 85610; 85730; 86140; 87804; 93005; 99285; A9270; J7030; U0002; 93010; 99284

== ENCOUNTER 2024-01-13 17:51 | Emergency (ER) | payer MEDICARE, OTHER | END 2024-01-13 19:47 | disposition left against medical advice (07) | LOC: DL.ED 17:51 | DX: Z53.21 Procedure and treatment not carried out due to patient leaving prior to being seen by health care provider (principal) ==

== ENCOUNTER 2024-01-16 13:39 | Emergency (ER) | payer MEDICARE, OTHER ==
[2024-01-16] MEDS: Ketamine 500 mg/10 ML MDV IV ONE (13:46)
[2024-01-16] MEDS: Lidocaine 1% 30 ML SDV INJECT ONE (13:46)
[2024-01-16 13:51] LABS: BASOPHILS PERCENT AUTO 0.2 % (0.0-1.0); EOSINOPHILS PERCENT AUTO 2.2 % (1.0-3.0); HEMOGLOBIN 12.4 g/dL (12.0-16.0); MEAN CORPUSCULAR HEMOGLOBIN 29.5 pg (27.0-34.0); MEAN CORPUSCULAR HGB CONC 31.8 g/dL (33.0-35.0); MEAN CORPUSCULAR VOLUME 92.9 fL (80-100); MONOCYTES PERCENT AUTO 8.8 % (2-8); NEUTROPHILS PERCENT AUTO 73.8 % (42.2-75.2); PLATELET COUNT,PLT 346 10^3/uL (150-450); WHITE BLOOD CELL COUNT,WBC 9.6 10^3/uL (5.0-10.0)
[2024-01-16] MEDS: Sulfamethoxazole/Trimethoprim 800-160 MG Tab PO ONE (14:28)
[2024-01-16 15:23] VITALS: BP 135/86; PULSE 79
== END 2024-01-16 14:48 | disposition home or self-care (01) ==
LOC: DL.ED 13:39
DX: L02.211 Cutaneous abscess of abdominal wall (principal); I25.10 Atherosclerotic heart disease of native coronary artery without angina pectoris; E78.00 Pure hypercholesterolemia, unspecified; I10 Essential (primary) hypertension; M19.90 Unspecified osteoarthritis, unspecified site; E11.40 Type 2 diabetes mellitus with diabetic neuropathy, unspecified; Z90.49 Acquired absence of other specified parts of digestive tract; Z90.710 Acquired absence of both cervix and uterus; Z79.82 Long term (current) use of aspirin; Z79.899 Other long term (current) drug therapy; Z88.5 Allergy status to narcotic agent; Z88.8 Allergy status to other drugs, medicaments and biological substances
CPT/HCPCS: 10060; 36415; 85025; 86140; 87040; 87070; 99284; A9270; J3490; 87077; 87186

== ENCOUNTER 2024-03-05 13:37 | Emergency (ER) | payer MEDICARE, OTHER ==
[2024-03-05 15:15] VITALS: BP 114/60; PULSE 76
[2024-03-05] MEDS: Acetaminophen 500 MG Tab PO ONE (15:37)
== END 2024-03-05 15:50 | disposition home or self-care (01) ==
LOC: DL.ED 13:37
DX: S05.11XA Contusion of eyeball and orbital tissues, right eye, initial encounter (principal); S60.511A Abrasion of right hand, initial encounter; S29.9XXA Unspecified injury of thorax, initial encounter; I10 Essential (primary) hypertension; E78.00 Pure hypercholesterolemia, unspecified; I25.10 Atherosclerotic heart disease of native coronary artery without angina pectoris; E11.21 Type 2 diabetes mellitus with diabetic nephropathy; E66.9 Obesity, unspecified; Z90.49 Acquired absence of other specified parts of digestive tract; Z90.710 Acquired absence of both cervix and uterus; Z79.82 Long term (current) use of aspirin; Z79.899 Other long term (current) drug therapy; Z88.6 Allergy status to analgesic agent; Z68.31 Body mass index [BMI] 31.0-31.9, adult; W19.XXXA Unspecified fall, initial encounter
CPT/HCPCS: 99283; A9270-GY

== ENCOUNTER 2024-11-11 18:57 | Emergency (ER) | payer MEDICARE, OTHER ==
[2024-11-11] MEDS ORDERED: Sodium Chloride 0.9% 10 ML Syringe FLUSH PRN (19:07)
[2024-11-11 19:24] LABS: BASOPHILS PERCENT AUTO 0.1 % (0.0-1.0); EOSINOPHILS PERCENT AUTO 1.1 % (1.0-3.0); HEMATOCRIT 40.8 % (37.0-47.0); HEMOGLOBIN 12.7 g/dL (12.0-16.0); LYMPHOCYTES PERCENT AUTO 21.5 % (20.5-50.1); MEAN CORPUSCULAR HEMOGLOBIN 30.2 pg (27.0-34.0); MEAN CORPUSCULAR HGB CONC 31.1 g/dL (33.0-35.0); MEAN CORPUSCULAR VOLUME 97.1 fL (80-100); MONOCYTES PERCENT AUTO 8.5 % (2-8); NEUTROPHILS PERCENT AUTO 68.8 % (42.2-75.2); PLATELET COUNT,PLT 328 10^3/uL (150-450); WHITE BLOOD CELL COUNT,WBC 8.5 10^3/uL (5.0-10.0)
[2024-11-11] MEDS: LORazepam 0.5 MG Tab PO ONE (19:33)
[2024-11-11 19:46] LABS: A/G RATIO 1.1; ALANINE AMINOTRANSFERASE,ALT 16 U/L (14-59); ALBUMIN 3.8 g/dL (3.4-5.0); ALKALINE PHOSPHATASE 89 U/L (46-116); ANION GAP 15.1 mEq/L (7-13); ASPARTATE AMNIOTRANSFERASE,AST 10 U/L (15-37); BILIRUBIN TOTAL 0.2 mg/dL (0.2-1.0); BLOOD UREA NITROGEN,BUN 16 mg/dL (7-18); BUN/CREATININE RATIO 11.9 (No establ ref range); CALCIUM 9.6 mg/dL (8.5-10.1); CARBON DIOXIDE,CO2 28 mmol/L (21-32); CHLORIDE,CL 103 mmol/L (98-107); CREATININE 1.35 mg/dL (0.55-1.02); ESTIMATED GFR 41 mL/min (>=60); GLUCOSE RANDOM 98 mg/dL (70-99); POTASSIUM,K 4.1 mmol/L (3.5-5.1); PROTEIN TOTAL,TP 7.3 g/dL (6.4-8.2); SODIUM,NA 142 mmol/L (136-145)
[2024-11-11 19:50] LABS: INR 0.9 (0.9-1.2); PROTHROMBIN TIME 9.9 SEC (9.0-12.0); PTT,PARTIAL THROMBOPLSTIN TIME 23.6 SEC (22.0-34.0)
[2024-11-11 19:53] VITALS: BP 139/84; PULSE 76
[2024-11-11] MEDS: Take Home: LORazepam 1 MG Tab, 2 Tab Pack PO ONE (21:54)
== END 2024-11-11 22:03 | disposition home or self-care (01) ==
LOC: DL.ED 18:57
DX: F43.22 Adjustment disorder with anxiety (principal); R07.89 Other chest pain; I25.10 Atherosclerotic heart disease of native coronary artery without angina pectoris; I10 Essential (primary) hypertension; E78.00 Pure hypercholesterolemia, unspecified; E11.21 Type 2 diabetes mellitus with diabetic nephropathy; E66.9 Obesity, unspecified; Z86.73 Personal history of transient ischemic attack (TIA), and cerebral infarction without residual deficits; Z95.1 Presence of aortocoronary bypass graft; Z79.82 Long term (current) use of aspirin; Z79.899 Other long term (current) drug therapy; Z88.8 Allergy status to other drugs, medicaments and biological substances; Z88.5 Allergy status to narcotic agent; Z68.32 Body mass index [BMI] 32.0-32.9, adult
CPT/HCPCS: 36415; 71045; 80053; 84484; 85025; 85610; 85730; 93005; 93010; 99284; 99285; A9270

== ENCOUNTER 2025-04-30 10:52 | Emergency (ER) | payer MEDICARE, OTHER ==
[2025-04-30 11:13] LABS: BASOPHILS PERCENT AUTO 0.2 % (0.0-1.0); EOSINOPHILS PERCENT AUTO 2.9 % (1.0-3.0); LYMPHOCYTES PERCENT AUTO 30.6 % (20.5-50.1); MONOCYTES PERCENT AUTO 7.0 % (2-8); NEUTROPHILS PERCENT AUTO 59.3 % (42.2-75.2); PLATELET COUNT,PLT 309 10^3/uL (150-450); RED BLOOD CELL COUNT 4.65 10^6/uL (4.2-5.4); WHITE BLOOD CELL COUNT,WBC 6.6 10^3/uL (5.0-10.0)
[2025-04-30 11:34] LABS: A/G RATIO 1.1; ALANINE AMINOTRANSFERASE,ALT 14 U/L (14-59); ASPARTATE AMNIOTRANSFERASE,AST 13 U/L (15-37); BILIRUBIN TOTAL 0.2 mg/dL (0.2-1.0); BLOOD UREA NITROGEN,BUN 14 mg/dL (7-18); CARBON DIOXIDE,CO2 26 mmol/L (21-32); CHLORIDE,CL 104 mmol/L (98-107); CREATININE 0.89 mg/dL (0.55-1.02); ESTIMATED GFR 68 mL/min (>=60); GLUCOSE RANDOM 151 mg/dL (70-99); POTASSIUM,K 4.2 mmol/L (3.5-5.1); PROTEIN TOTAL,TP 7.6 g/dL (6.4-8.2); SODIUM,NA 140 mmol/L (136-145)
[2025-04-30 11:50] LABS: INR 0.9 (0.9-1.2); PTT,PARTIAL THROMBOPLSTIN TIME 23.6 SEC (22.0-34.0)
[2025-04-30] MEDS: Sodium Chloride 0.9% 10 ML Syringe FLUSH PRN (12:04)
[2025-04-30] MEDS ORDERED: Bacitracin Oint 1 GM U/D Packet TOP ONE (13:13)
== END 2025-04-30 13:39 | disposition home or self-care (01) ==
LOC: DL.ED 10:52
DX: S06.5X0A Traumatic subdural hemorrhage without loss of consciousness, initial encounter (principal); I10 Essential (primary) hypertension; E11.40 Type 2 diabetes mellitus with diabetic neuropathy, unspecified; E78.00 Pure hypercholesterolemia, unspecified; I25.10 Atherosclerotic heart disease of native coronary artery without angina pectoris; E66.9 Obesity, unspecified; M19.90 Unspecified osteoarthritis, unspecified site; Z79.899 Other long term (current) drug therapy; Z88.5 Allergy status to narcotic agent; Z88.8 Allergy status to other drugs, medicaments and biological substances; Z90.49 Acquired absence of other specified parts of digestive tract; Z90.710 Acquired absence of both cervix and uterus; W19.XXXA Unspecified fall, initial encounter
CPT/HCPCS: 36415; 70450; 70486; 72125; 80053; 83735; 85025; 85610; 85730; 93005; 96374; 99284; J2765; 93010